=== PATIENT | male | born 1980 | race Caucasian/White ===

== ENCOUNTER 2020-01-14 11:46 | Outpatient (NON) | payer OTHER, SELFPAY ==
[2020-01-14 20:51] LABS: SARS-CoV-2 RNA PCR Negative
== END 2020-01-14 11:47 ==
PROVIDERS: Visit Provider Nurse Practitioner
DX: R09.89 Other specified symptoms and signs involving the circulatory and respiratory systems (principal); Z20.828 Contact with and (suspected) exposure to other viral communicable diseases
CPT/HCPCS: 87635; C9803; U0003

== ENCOUNTER 2020-02-07 06:53 | Outpatient (NON) | payer OTHER, SELFPAY ==
[2020-02-07 21:00] LABS: SARS-CoV-2 RNA PCR Negative
== END 2020-02-07 06:54 ==
PROVIDERS: Visit Provider Nurse Practitioner
DX: R05 Cough (principal); Z20.828 Contact with and (suspected) exposure to other viral communicable diseases
CPT/HCPCS: 87635; C9803; U0003

== ENCOUNTER 2020-08-10 08:08 | Emergency (ER) | payer OTHER, SELFPAY ==
[2020-08-10 08:14] VITALS: BP 117/72; PULSE 71; RESP 12; TEMP 37.4; O2SAT 98
--- NOTE | 2020-08-10 08:30 | ED.MALEGU ---
HPI - Male Genitourinary General Chief complaint: Urogenital-Male Stated complaint: FREQUENT URINATION/TINGLING Time Seen by Provider: 08/10/20 08:22 Source: patient and RN notes reviewed Mode of arrival: ambulatory Limitations: no limitations History of Present Illness HPI Narrative: 32-year-old male presents concern for 1 day history of dysuria, urine frequency, slow urine stream. He reports also feeling woozy for a few minutes this morning, he denies syncope. He denies fever, back pain, abdominal pain, nausea, vomiting, hematuria. He denies any testicular pain, swelling, abnormal penile discharge. He denies intervention. MD Complaint: dysuria Related Data Allergies Allergy/AdvReac Type Severity Reaction Status Date / Time No Known Allergies Allergy Verified 08/10/20 08:12 Review of Systems Review of Systems: Narrative: CONSTITUTIONAL: Denies malaise, chills, sweats, or fever. EYES: Denies visual changes CARDIOVASCULAR: Denies chest pain, palpitations, or edema. RESPIRATORY: Denies cough or dyspnea. GASTROINTESTINAL: Denies abdominal pain, nausea, vomiting, diarrhea GENITOURINARY: Reports frequency, dysuria, slow urine stream. Denies flank pain, penile discharge, testicular swelling, testicular redness or hematuria. SKIN: Denies rash or itching. MUSCULOSKELETAL: Denies back pain or myalgia. NEUROLOGIC: Denies numbness, weakness, or headache. Reports an episode of dizziness All systems reviewed & are unremarkable except as noted in HPI and below PMFSH Surgical History Surgical History [place] teeth removed Family History Family History Mother Pancreatic cancer Diverticulitis Father Hypertension Grandparent Parkinson disease Cerebrovascular accident Carcinoma of colon Social History Social History Smoking status: Never smoker Alcohol intake: current Comments At time of signature, agree with nursing past medical, surgical, social and family history. There is no relevant family history pertinent to the presenting complaint Exam Narrative: Exam Narrative: GENERAL: Well-appearing, well-nourished, and in no acute distress. HEAD: Normocephalic. EYES: PERRLA, conjunctivae clear. NECK: Supple. No lymphadenopathy CHEST: Clear to auscultation. No respiratory distress. HEART: Regular rate and rhythm. ABDOMEN: Soft, nontender upon palpation, nondistended, normal active bowel sounds, no palpable or pulsatile masses, no guarding. No CVA tenderness SKIN: Warm, dry, no rash. NEURO: Alert and oriented x3. No focal deficits. Gait normal. PSYCH: Normal mood and affect Course Course Emergency Course: Patient is aware of diagnosis, understands and agrees to treatment plan. Anticipatory guidance given. Patient agrees to follow-up as directed and is aware of reasons to seek care at the emergency department. Portions of this record may have been created with voice recognition software Vital Signs Vital signs: Vital Signs Temperature 99.4 F 08/10/20 08:14 Pulse Rate 71 08/10/20 08:14 Respiratory Rate 12 08/10/20 08:14 Blood Pressure 117/72 08/10/20 08:14 Pulse Oximetry 98 08/10/20 08:14 Temperature 99.4 F 08/10/20 08:14 Pulse Rate 71 08/10/20 08:14 Respiratory Rate 12 08/10/20 08:14 Blood Pressure 117/72 08/10/20 08:14 Pulse Oximetry 98 08/10/20 08:14 Reviewed. MDM - Male Genitourinary MDM Narrative Medical decision making narrative: Exam findings and UA show no acute concerns or changes; patient is non-toxic appearing and is in no distress. Patient is appropriate for outpatient treatment and follow-up. Differential Diagnosis Differential diagnosis: Likely urinary tract infection, urethritis, epididymitis, prostatitis and acute retention of urine Lab Data Labs: Urine Glucose Negative
== END 2020-08-10 08:36 | disposition home or self-care (01) ==
PROVIDERS: Emergency Provider Nurse Practitioner; PCP Internal Medicine
DX: N39.0 Urinary tract infection, site not specified (principal)
CPT/HCPCS: 81003; 87077; 87086; 87088; 87186; 99213; G0463

== ENCOUNTER 2020-08-11 14:02 | Emergency (ER) | payer OTHER, SELFPAY ==
--- NOTE | ~2020-08-11 | CT_ITS ---
EXAMINATION: CT abdomen pelvis w con DATE: 08/11/2020 16:42 INDICATION: Abdominal pain TECHNIQUE: Computed tomography (CT) of the abdomen and pelvis was performed with 100 mL Omnipaque-350 intravenous contrast. Automated exposure control and iterative reconstruction technique were employe d. The dose-length product was 550.61 mGy-cm. COMPARISON: None FINDINGS: Minimal dependent atelectasis in the bilateral lower lobes. Heart size is normal. No pericardial or p leural effusion. Liver, gallbladder, spleen, pancreas, bilateral adrenal glands and kidneys are teagan l. Bowels including the appendix are normal. Bladder is normal. Prostate appears enlarged for age barbara suring 5.7 x 3.9 cm with heterogeneous enhancement suggesting possible prostatitis. Bladder is normal . Small amount of ascites in the deep pelvis. No abscess or free intraperitoneal gas. No pathological ly enlarged abdominal or pelvic lymphadenopathy. Bones are unremarkable. IMPRESSION: 1. Enlarged and heterogeneously enhancing prostate. Correlate clinically for prostatitis.. Reviewed, dictated and finalized at location A. IMPRESSION: 1. Enlarged and heterogeneously enhancing prostate. Correlate clinically for pr ostatitis..
[2020-08-11 14:03] VITALS: BP 134/76; PULSE 79; RESP 16; TEMP 37.7; O2SAT 95
[2020-08-11 14:17] LABS: Basophils Percent Auto 0.1 % (0.2-1.2); Eosinophils Percent Auto 0.2 % (0-4.4); Hematocrit 43.6 % (42.0-52.0); Hemoglobin 14.7 g/dL (14.0-18.0); Immature Granulocyte Absolute 0.05 K/mm3 (0.00-0.031); Immature Granulocyte Percent A 0.4 % (0-0.5); Lymphocytes Absolute Auto 0.63 K/mm3 (0.9-3.2); Lymphocytes Percent Auto 4.9 % (18.3-44.2); Mean Corpuscular HGB Conc 33.7 g/dl (32-36); Mean Corpuscular Hemoglobin 30.8 pg (26-34); Mean Corpuscular Volume 91.4 fl (80-100); Mean Platelet Volume 9.8 fl (7.4-10.4); Monocytes Absolute Auto 0.9 K/mm3 (0.1-0.6); Neutrophils Absolute Auto 11.3 K/mm3 (1.3-6.7); Neutrophils Percent Auto 87.4 % (45.5-73.1); Platelet Count Result 256 k/mm3 (150-375); Red Blood Count 4.77 M/mm3 (4.6-6.20); Red Cell Distribution Width 13.2 % (11.5-14.5); White Blood Count 12.9 K/mm3 (4.5-10.0)
[2020-08-11 14:27] LABS: Anion Gap 7 mmol/L (8-16); Blood Urea Nitrogen 10 mg/dL (9-20); Carbon Dioxide 25 mmol/L (22-30); Chloride 106 mmol/L (98-107); Estimated Glomerular Filt Rate > 60; Glucose 136 mg/dL (75-110); Potassium 3.6 mmol/L (3.4-5.0); Sodium 138 mmol/L (137-145)
[2020-08-11 14:37] LABS: Add Urine Microscopic? YES; Appearance Urine Clear (Clear); Bilirubin Urine Negative (Negative); Blood Urine Negative (Negative); Color Urine Yellow (Yellow); Glucose Urine UA Negative (Negative); Ketones Urine Negative (Negative); Leukocyte Esterase Ur Trace LEU/UL (Negative); Mucus Urine Rare /lpf; Nitrate Urine Negative (Negative); Protein Urine Negative (Negative); RBC Urine 0-2 /hpf (0-2); Specific Grav Ur 1.011 (1.001-1.035); Urobilinogen Urine Negative mg/dL (<2.0)
[2020-08-11 15:20] VITALS: BP 123/77; PULSE 60; RESP 20; O2SAT 100
[2020-08-11 16:04] VITALS: BP 108/71; PULSE 56; RESP 20; O2SAT 100
[2020-08-11] MEDS: SODIUM CHLORIDE 0.9% IV 1,000 ML 999 ML IV CONT ×2 (16:04→17:20)
[2020-08-11 16:05] LABS: Lactic Acid Reflex 1.3 mmol/L (0.7-2.1)
--- NOTE | 2020-08-11 16:39 | ED.ABDPAIN ---
HPI - Abdominal Pain General Chief Complaint: Urogenital-Male Stated Complaint: UTI, fever Time Seen by Provider: 08/11/20 15:31 Source: RN notes reviewed History of Present Illness HPI narrative: Patient presents emergency department from home for dysuria. The patient states that starting yesterday he had painful urination described as a tingling and burning as well as low flow states at that time he also had fever and chills as well as a near syncopal episode. The patient went to urgent care yesterday and had a positive urine dip diagnosed with UTI started on Cipro which she has been taking. States he continues to not feel well today including low-grade temperatures which has been taking Tylenol and ibuprofen with last ibuprofen at 1230 he states he has been having associated lower back pain he denies any chest pain shortness of breath abdominal pain nausea vomiting or any other symptoms. The patient states he has had both of his Covid vaccines Related Data Allergies Allergy/AdvReac Type Severity Reaction Status Date / Time No Known Allergies Allergy Verified 08/11/20 16:37 Review of Systems Review of Systems: Narrative: Gen.: Reports fevers ENT: Denies congestion Respiratory: Denies shortness of breath or cough CV: Denies chest pain or palpitations GI: Denies abdominal pain nausea, emesis or diarrhea see HPI Musculoskeletal: Denies back pain or muscle pain Neuro: Denies numbness, tingling, weakness or focal weakness Skin: Denies rash Except as documented, all other systems reviewed and negative PMFSH Past Medical History Medical History (Updated 08/11/20 @ 17:14 by Kali Rebollar DO) Patient denies significant medical history Surgical History Surgical History [place] teeth removed Family History Family History Mother Pancreatic cancer Diverticulitis Father Hypertension Grandparent Parkinson disease Cerebrovascular accident Carcinoma of colon Social History Social History Smoking status: Never smoker Alcohol intake: current Gender identity (if verbalized by the patient): Male Exam Narrative: Exam Narrative: APPEARANCE: No acute distress, nontoxic, resting in bed EYES: EOMI HEENT: Normocephalic, atraumatic, OMM RESPIRATORY: No respiratory distress Clear to auscultation bilaterally with no rhonchi wheezing or rales. CARDIOVASCULAR: Regular rate and rhythm without murmurs rubs or gallops. ABDOMINAL: Soft, nontender, nondistended, no rebound or guarding MUSCULOSKELETAl: Moves all extremities. No clubbing, cyanosis or edema. NEURO: Awake and alert. Following commands, speech normal, no focal deficits SKIN:: Warm, dry. No rashes lesions or abrasions PSYCHIATRIC: Normal affect/mood, Course Course Emergency Course: Reviewed records from urgent care yesterday patient was placed on Cipro which she is taken [address] Anaya presentation work-up agrees with plan for discharge recommends patient be on Cipro for total of 2 weeks recommends patient start on Flomax Discussed with patient results of workup and diagnosis. Discussed need for follow-up with primary care, proper use of medication, and reasons to return to the emergency department. Patient understands and agrees to current treatment plan patient was given a week's worth of Cipro discharge yesterday at urgent care and will be written for another week of antibiotics Vital Signs Vital signs: Vital Signs Temperature 99.9 F H 08/11/20 14:03 Pulse Rate 79 08/11/20 14:03 Respiratory Rate 16 08/11/20 14:03 Blood Pressure 134/76 08/11/20 14:03 Pulse Oximetry 95 08/11/20 14:03 Temperature 99.9 F H 08/11/20 14:03 Pulse Rate 56 L 08/11/20 16:04 Respiratory Rate 20 08/11/20 16:04 Blood Pressure 108/71 08/11/20 16:04 Pulse Oximetry 100
[2020-08-11 17:20] VITALS: BP 126/81; PULSE 57; RESP 20; O2SAT 100
[2020-08-11] MEDS: TAMSULOSIN HCL 0.4 MG CAPSULE PO (17:20)
[2020-08-11 17:54] VITALS: BP 126/81; PULSE 57; RESP 20; O2SAT 100
== END 2020-08-11 17:55 | disposition home or self-care (01) ==
PROVIDERS: Emergency Provider Emergency Medicine; PCP Internal Medicine
DX: N41.0 Acute prostatitis (principal)
CPT/HCPCS: 36415; 74177; 80048; 81001; 83605; 85025; 87040; 87086; 96360; 96361; 99284; A9270; J7030; Q9967

== ENCOUNTER 2020-11-08 11:19 | Emergency (ER) | payer OTHER, SELFPAY ==
--- NOTE | 2020-11-08 11:25 | ED.URI ---
HPI - URI/Sore Throat General Chief Complaint: Upper Respiratory Infection Stated Complaint: sore throat Time Seen by Provider: 11/08/20 11:25 Source: patient and RN notes reviewed History of Present Illness HPI Narrative: Patient is a 40-year-old male who presents the urgent care with complaints of a sore throat and blisters in the mouth. Patient states his daughter was diagnosed the beginning of this week with [id number]-mouth and he believes he now has it as well. Patient states he noticed the blisters a few days after his daughter was diagnosed. States that the areas on his hands are improving but he is having a difficult time swallowing due to the pain from the blistering. Patient denies of any fevers. States that he has been using at home remedies to soothe the throat as well as taking TheraFlu and DayQuil. No other acute complaints. No acute distress noted. Patient aware of the plan of care. Some parts of this dictation were generated by voice recognition software and may contain typographical and/or grammatical inaccuracies. Related Data Allergies Allergy/AdvReac Type Severity Reaction Status Date / Time No Known Allergies Allergy Verified 08/11/20 16:37 Review of Systems Review of Systems: CONSTITUTIONAL: Denies fever, chills, or sweats. EYES: Denies visual changes, redness, or discharge. ENT: Denies rhinorrhea, congestion, or otalgia. Reports of blistering in the throat/sore throat CARDIOVASCULAR: Denies chest pain, palpitations, or edema. RESPIRATORY: Denies cough or dyspnea. GASTROINTESTINAL: Denies abdominal pain, nausea, vomiting, or diarrhea. GENITOURINARY: Denies dysuria or hematuria. SKIN: Denies rash or itching. MUSCULOSKELETAL: Denies back pain, joint pain, or myalgia. NEUROLOGIC: Denies headache, numbness, or weakness. All other systems reviewed are negative, except as documented in HPI. [facility] Past Medical History Medical History (Updated 11/08/20 @ 11:45 by VERONIKA Jones) Patient denies significant medical history Surgical History Surgical History [place] teeth removed Family History Family History Mother Pancreatic cancer Diverticulitis Father Hypertension Grandparent Parkinson disease Cerebrovascular accident Carcinoma of colon Social History Social History Smoking status: Never smoker Alcohol intake: current Gender identity (if verbalized by the patient): Male Comments At the time of my signature, I reviewed and agree with the nursing past medical, surgical, social, and family history. There is no relevant family history pertinent to the patient complaint. Exam Narrative: GENERAL: This is a well-nourished, well-developed patient, in no apparent distress. HEAD: normocephalic, atraumatic. EYES: PERRL. Sclera clear/white. Vision is grossly intact. EARS: External ears normal NOSE: External nose normal with no obvious nasal discharge, nares without redness, no rhinorrhea. THROAT: Mucous membranes moist, moderate erythema noted to posterior oropharynx with scattered blistered lesions, moderate postnasal drainage NECK: Neck supple, mild bilateral submandibular lymphadenopathy CARDIOVASCULAR: Regular rate and rhythm without murmurs, gallops, or rubs. RESPIRATORY: Clear to auscultation. Breath sounds equal bilaterally. No wheezes, rales, or rhonchi. SKIN: Scattered healing blistered lesions throughout the bilateral webs of the hands and dorsal hand NEURO: awake, alert, and oriented to person, place and time. There were no obvious focal neurologic abnormalities. EXTREMITIES: No clubbing, cyanosis, or edema. Course Vital Signs Vital signs: Vital Signs Temperature 98 F 11/08/20 11:27 Pulse Rate 54 L 11/08/20 11:27 Respiratory Rate 16 11/08/20 11:27 Blood Pressure 133/89 11/08/20 11:27 Pulse Oximetry
[2020-11-08 11:27] VITALS: BP 133/89; PULSE 54; RESP 16; TEMP 36.6; O2SAT 100
== END 2020-11-08 11:49 | disposition home or self-care (01) ==
PROVIDERS: Emergency Provider Nurse Practitioner Family; PCP Internal Medicine
DX: B08.4 Enteroviral vesicular stomatitis with exanthem (principal)
CPT/HCPCS: 99213; G0463

== ENCOUNTER 2021-05-05 16:44 | Observation (INO) | payer OTHER, SELFPAY ==
[2021-05-05] VITALS (21 sets, daily range): BP systolic 114–127; BP diastolic 65–81; PULSE 56–74; RESP 11–19; TEMP 36.4–36.5; O2SAT 95–100; BMI 26.2
--- NOTE | ~2021-05-05 | XR_ITS ---
XR chest 2V DATE: 05/05/2021 17:32 INDICATION: Syncopal episode TECHNIQUE: AP and lateral views COMPARISON: None FINDINGS: Heart size is not optimally evaluated on AP projection because of magnification. No hilar o r mediastinal enlargement. No pulmonary vascular congestion or pleural effusion. No pulmonary infiltr ate or consolidation. IMPRESSION: No active pulmonary disease Reviewed, dictated and finalized at location B. ON [employer]JUSTER IMPRESSION: No active pulmonary disease
--- NOTE | ~2021-05-05 | CT_ITS ---
EXAMINATION: CT brain wo con DATE: 05/05/2021 17:54 INDICATION: Syncopal episode. Hypotension and lightheadedness. TECHNIQUE: Computed tomography (CT) of the head was performed without intravenous contrast. Sagittal and coronal reconstructions were performed. The mA was adjusted according to patient size. Iterative reconstruction technique was employed. The dose-length product was 605.33 mGy-cm. COMPARISON: None FINDINGS: No acute intracranial hemorrhage, acute infarction or abnormal extra axial fluid collection. Ventricl es are normal and symmetric. No mass/mass effect. The orbits, paranasal sinuses and mastoid air cells are normal. IMPRESSION: 1. Normal head CT. Reviewed, dictated and finalized at location A. DDER PICKER IMPRESSION: 1. Normal head CT.
--- NOTE | ~2021-05-05 | CT_ITS ---
EXAMINATION: CT soft tissue neck w con DATE: 05/05/2021 17:54 INDICATION: Syncopal episode and injury post fall. TECHNIQUE: Computed tomography (CT) of the neck was performed with 75 mL Omnipaque-350 intravenous co ntrast. Automated exposure control and iterative reconstruction technique were employed. The dose-marianela gth product was 586.75 mGy-cm. COMPARISON: None FINDINGS: Thyroid gland is unremarkable. Submandibular and parotid glands are symmetric. There are scattered normal-sized lymph nodes in the neck, no lymphadenopathy. No masses identified. The vasculature is patentand normal in caliber. Airway is unremarkable. Orbits are unremarkable. Visualized sinuses and mastoid aircells are well aerated. Lung apices are normal. Superior mediastinum is unremarkable. Mi ld cervical thoracic levocurvature. No acute osseous abnormality. IMPRESSION: 1. No acute abnormality at the neck, visualized head and upper chest. Reviewed, dictated and finalized at location A. [employer]
--- NOTE | 2021-05-05 17:12 | ECG_ITS ---
Measurements Intervals [place] Rate: 55 P: -7 MD: 191 QRS: -10 QRSD: 121 T: 7 QT: 444 QTc: 427 Interpretive Statements SINUS BRADYCARDIA RIGHT BUNDLE BRANCH BLOCK POSSIBLE LEFT VENTRICULAR HYPERTROPHY ABNORMAL ECG Electronically Signed On 05-05-2021 20:17:10 [employer] by Junior Corrigan D.O.
--- NOTE | 2021-05-05 17:15 | ED.SYNCOPE ---
HPI - Syncope General Chief Complaint: Syncope <Go Bhatt APRN - Last Filed: 05/05/21 20:17> Stated Complaint: syncope <Go Bhatt APRN - Last Filed: 05/05/21 20:17> Time Seen by Provider: 05/05/21 16:57 <Go Bhatt APRN - Last Filed: 05/05/21 20:17> Source: patient, family, EMS and RN notes reviewed <Go Bhatt APRN - Last Filed: 05/05/21 20:17> Mode of arrival: EMS <Go Bhatt APRN - Last Filed: 05/05/21 20:17> Limitations: no limitations <Go Bhatt APRN - Last Filed: 05/05/21 20:17> History of Present Illness HPI narrative: Patient presents to ER via EMS with c/o syncopal episode sustained while running. Patient has no known cardiac history. No history of syncopal episodes. Avila states he had already run 2-2.5 miles prior to the episode. States he was initially feeling lightheaded and then woke up lying on the ground. Patient admits to hitting his head on the ground following the syncopal incident. Patient admits to being poorly hydrated prior to exercising today. <Go Bhatt APRN - Last Filed: 05/05/21 20:17> Prodromal symptoms: lightheaded <Go Bhatt APRN - Last Filed: 05/05/21 20:17> Witnessed: Yes - by Bystander <Go Bhatt APRN - Last Filed: 05/05/21 20:17> Treatments prior to arrival: IV fluids <Go Bhatt APRN - Last Filed: 05/05/21 20:17> Related Data Home Medications: Home Medications Medication Instructions Recorded Confirmed No Home Medications 05/05/21 05/05/21 <Go Bhatt APRN - Last Filed: 05/05/21 20:17> Allergies/Adverse Reactions: Allergies Allergy/AdvReac Type Severity Reaction Status Date / Time No Known Allergies Allergy Verified 08/11/20 16:37 <Go Bhatt APRN - Last Filed: 05/05/21 20:17> Review of Systems Review of Systems: CONSTITUTIONAL: Denies fever, chills, or sweats. EYES: Denies visual changes, redness, or discharge. ENT: Denies rhinorrhea, congestion, sore throat, or otalgia. CARDIOVASCULAR: Denies chest pain, palpitations, or edema. RESPIRATORY: Denies cough or dyspnea. GASTROINTESTINAL: Denies abdominal pain, nausea, vomiting, or diarrhea. GENITOURINARY: Denies dysuria or hematuria. SKIN: Denies rash or itching. MUSCULOSKELETAL: Denies back pain, joint pain, or myalgia. NEUROLOGIC: Denies headache, numbness, dizziness, or weakness. PSYCHIATRIC: Denies anxiety or depression. <Go Bhatt APRN - Last Filed: 05/05/21 20:17> All systems reviewed & are unremarkable except as noted in HPI and below <Go Bhatt APRN - Last Filed: 05/05/21 20:17> PMFSH Past Medical History Medical History: Medical History Patient denies significant medical history <Go Bhatt APRN - Last Filed: 05/05/21 20:17> Surgical History Surgical History: Surgical History [place] teeth removed <Go Bhatt APRN - Last Filed: 05/05/21 20:17> Family History Family History: Family History Mother Pancreatic cancer Diverticulitis Father Hypertension Grandparent Parkinson disease Cerebrovascular accident Carcinoma of colon <Go Bhatt APRN - Last Filed: 05/05/21 20:17> Social History Social History: Social History Smoking status: Never smoker Alcohol intake: current Gender identity (if verbalized by the patient): Male <Go Bhatt APRN - Last Filed: 05/05/21 20:17> Exam Narrative: GENERAL: Well-appearing, well-nourished, and in no acute distress. HEAD: Normocephalic, atraumatic. EYES: PERRLA and EOMI. ENT: Nares clear, no rhinorrhea or epistaxis. Mucous membranes dry.. Oropharynx without tonsillar hypertrophy exudate or other lesions. Bilateral TMs pearly
[2021-05-05] MEDS: SODIUM CHLORIDE 0.9% IV 1,000 ML 150 ML IV CONT (17:29)
[2021-05-05 17:50] LABS: Estimated CRCL calculation 120 ml/min; Estimated Glomerular Filt Rate > 60
[2021-05-05 18:41] LABS: Basophils Percent Auto 0.1 % (0.2-1.2); Eosinophils Percent Auto 0.2 % (0-4.4); Hematocrit 45.8 % (42.0-52.0); Hemoglobin 15.5 g/dL (14.0-18.0); Immature Granulocyte Absolute 0.07 K/mm3 (0.00-0.031); Immature Granulocyte Percent A 0.5 % (0-0.5); Lymphocytes Percent Auto 6.5 % (18.3-44.2); Mean Corpuscular HGB Conc 33.8 g/dl (32-36); Mean Corpuscular Hemoglobin 31.8 pg (26-34); Neutrophils Absolute Auto 11.9 K/mm3 (1.3-6.7); Neutrophils Percent Auto 85.7 % (45.5-73.1); Platelet Count Result 249 k/mm3 (150-375); Red Blood Count 4.87 M/mm3 (4.6-6.20); Red Cell Distribution Width 12.9 % (11.5-14.5); White Blood Count 13.9 K/mm3 (4.5-10.0)
[2021-05-05 19:07] LABS: D Dimer 0.27 ug/mL (<0.48)
[2021-05-05 19:08] LABS: Alanine Aminotransferase 67 U/L (4-50); Albumin Level 3.9 g/dL (3.5-5.1); Alkaline Phosphatase 62 U/L (38-126); Anion Gap 6 mmol/L (8-16); Aspartate Amino Transferase 40 U/L (17-59); Bilirubin,Total 0.6 mg/dL (0.2-1.3); Blood Urea Nitrogen 21 mg/dL (9-20); Carbon Dioxide 27 mmol/L (22-30); Chloride 103 mmol/L (98-107); Creatine Kinase 137 U/L (55-170); Estimated CRCL calculation 89 ml/min; Estimated Glomerular Filt Rate > 60; Glucose 123 mg/dL (65-110); Potassium 4.2 mmol/L (3.4-5.0); Sodium 136 mmol/L (137-145); Troponin I < 0.012 ng/mL (0.000-0.034)
--- NOTE | 2021-05-05 19:51 | PM.IMHP ---
H&P: HPI History of Present Illness Date/Time: 05/05/21 19:51 Chief Complaint: Syncope Narrative: This is a 40-year-old male with no significant past medical history patient presents to the emergency room after he had a syncopal episode today patient went of joking and had done to to 2-1/2 miles when he started feeling lightheaded and decided to stop while he was standing he passed out a bystander helped him and called 911 upon arrival patient was found to have a blood pressure of 90/60 patient was brought to the emergency room for further evaluation. In emergency room patient was found to be orthostatic. Workup was essentially nonrevealing. An EKG showed a right bundle branch block. Patient was recently diagnosed with COVID at the beginning of March. Patient denies any fevers, rigors, chills, cough, sputum production , no palpitations, no chest pain, no PND, no orthopnea, no dizziness, no lightheadedness, no near syncope or syncope prior to today's event, no leg swelling, no calves pain, patient states that he does not drink in no of water and he instead drinks a lot of coffee during the day, denies any nausea vomiting abdominal pain or diarrhea. Patient jaw ox 3-4 miles 4 days a week. Patient is been admitted for further evaluation, management and treatment. Review of Systems Review of Systems: Syncope, lightheadedness. Constitutional: Constitutional: Denies chills, Denies fatigue, Denies fever(s), Denies frequent falls, Denies lethargy, Denies malaise, Denies night sweats, Denies poor appetite and Denies weakness Eyes: Eyes: Denies change in vision ENT: Denies dysphagia, Denies vertigo, Denies dizziness, Denies nasal congestion, Denies nasal discharge, Denies nasal obstruction, Denies odynophagia and Denies disequilibrium Cardiovascular: Cardiovascular: Denies chest pain, Denies pedal edema, Denies irregular heart rhythm, Denies claudication, Denies leg edema, Denies radiating jaw, neck or arm pain, Denies palpitations, Denies dyspnea on exertion, Denies orthopnea, Denies paroxysmal nocturnal dyspnea and Denies slow heart rate Respiratory: Respiratory: Denies chest congestion, Denies cough, Denies dyspnea, Denies dyspnea on exertion and Denies wheezing Gastrointestinal: Gastrointestinal: Denies abdominal pain, Denies dyspepsia, Denies heartburn, Denies diarrhea, Denies nausea and Denies vomiting Genitourinary: Genitourinary: Denies dysuria and Denies flank pain Musculoskeletal: Musculoskeletal: Denies back pain, Denies arthralgias, Denies joint swelling and Denies muscle weakness Integumentary/Breasts: Skin/Breast: Denies rash and Denies wounds Neurologic: Denies vertigo, Denies dizziness, Denies focal weakness and Denies Sensory deficit (Neuro) Psychiatric: Psychiatric: Denies confusion, Denies depression and Denies irritability Endocrine: Endocrine: Denies cold intolerance, Denies heat intolerance, Denies polyphagia, Denies polydipsia and Denies palpitations Hematologic/Lymphatic: Hematologic/Lymphatic: Reports no additional hematologic/lymphatic complaints and Reports as per HPI Allergic/Immunologic: Allergic/Immunologic: Reports no additional allergic/immunologic complaints and Reports as per HPI [facility] Past Medical History Medical History Patient denies significant medical history Surgical History Surgical History [place] teeth removed Family History Family History Mother Pancreatic cancer Diverticulitis Father Hypertension Grandparent Parkinson disease Cerebrovascular accident Carcinoma of colon Social History Social History Smoking status: Never smoker Second hand tobacco smoke exposure: No Alcohol intake: never Substance use: never Gender identity (if verbalized by the patient):
[2021-05-05 21:15] LABS: SARS-CoV-2 RNA PCR Negative
[2021-05-06] VITALS (9 sets, daily range): BP systolic 111–125; BP diastolic 63–70; PULSE 52–70; RESP 16–20; TEMP 36.3–36.9; O2SAT 96–100
--- NOTE | 2021-05-06 00:25 | ADMGEN ---
This patient, Stephan Andre, arrived to unit @ 9050 05/05/2021. Pt. was admitted to IMU Room 206-02. Patient/family oriented to hospital policies and general routines including ID bracelet, bed and alarms, visiting hours, pain management, procedures, bathroom and other care routines, personal items, smoking policy, room service/diet, and visiting hours. Information on how to activate the Rapid Response Team has been discussed. Patient/Family are encouraged to report perceived risks to care and to ask questions if they do not understand what they are told or what they should do.
[2021-05-06 00:57] LABS: Troponin I < 0.012 ng/mL (0.000-0.034)
--- NOTE | 2021-05-06 06:00 | ECHO_ITS ---
Patient Info Name: Stephan Andre Age: 40 years : 1980 Gender: Male Ht: 72 in Wt: 193 lbs BSA: 2.12 m2 HR: 54 bpm BP: 121 / 69 mmHg Heart Rhythm: Sinus Rhythm Technical Quality: Fair Exam Date: 05/06/2021 8:06 AM Exam Location: [facility] Patient Status: Outpatient Admit Date: 05/05/2021 Staff Ordering Physician: Go Bhatt APRN Ice Seller: Rabia Barakat RDCS Attending Provider: Ne Bowers MD Referring Physician: Miller MORGAN; Exam Type: CA echo doppler color flow Study Info Indications - Lv function Complete two-dimensional, color flow and Doppler transthoracic echocardiogram is performed. Summary 1. Complete two-dimensional, color flow and Doppler transthoracic echocardiogram is performed. 2. Left ventricular chamber dimension is normal. 3. Left ventricular systolic function is normal, estimated at 65-70%. 4. Right ventricular chamber dimension is normal. 5. Barely detectable amounts of mitral and tricuspid regurgitation within physiologic normal limits. Left Ventricle Left ventricular chamber dimension is normal. Left ventricular systolic function is normal, estimated at 65-70%. The left ventricular diastolic function is normal. Right Ventricle Right ventricular chamber dimension is normal. Left Atria Left atrial chamber dimension is normal. Right Atria Right atrial chamber dimension is normal. Aortic Valve The aortic valve is normal. Pulmonic Valve The pulmonic valve is normal. Mitral Valve The mitral valve has normal leaflets. There is trace mitral valve regurgitation. Tricuspid Valve The tricuspid valve leaflets are normal. There is trace tricuspid valve regurgitation. Pericardium/Pleural The pericardium appears normal. Aorta The aortic root size at the sinus of Valsalva is normal. Left Ventricular Outflow Tract Name Value Normal LVOT 2D LVOT Diameter 2.1 cm LVOT Doppler LVOT Peak Gradient 10 mmHg LVOT Mean Gradient 5 mmHg LVOT VTI 32 cm LVOT VTI/AV VTI Ratio 0.9 LVOT Stroke Volume 115 ml LVOT CO 6.4 l/min LVOT CI 3.0 l/min/m2 Pulmonic Valve Name Value Normal RVOT Doppler RVOT Peak Gradient 3 mmHg PV Doppler PV Peak Gradient 6 mmHg Mitral Valve Name Value Normal MV Doppler MV [place]
--- NOTE | 2021-05-06 12:14 | PM.CNCAR ---
Assessment and Plan Additional Plan This is a 40-year-old man who had a syncopal episode after running a long distance yesterday. Upon arrival EMS found to be hypotensive. There was comment in the chart that he may not have hydrated properly prior to exercising. After he was given some fluid he felt better. Upon admission overnight he has not had any arrhythmias. No prior cardiac history. He does have an incidentally noted right bundle branch block on his ECG. Echocardiogram was otherwise essentially unremarkable. At this point there is no cardiac reason he needs to stay in the hospital any longer. I told the patient that if he has subsequent episodes like this he should lie down quickly so that he does not fall down. Because he did have some warning symptoms for a short period of time I doubt that he pause because of an abrupt asystolic pause. These type of syncopal events generally are associated with no warning symptoms of any kind. On the other hand if he does have recurrent episodes he may benefit from more evaluation of his rhythm or possibly electrophysiology consultation. At this point he could be safe to be discharged from my opinion Aries Smiley MD [facility] History of Present Illness History of Present Illness Consult date/time: 05/06/21 12:14 Reason For Visit: syncope Narrative: This is a pleasant 40-year-old man I am seeing at the request of the hospitalist because he experienced a syncopal episode yesterday after which he was admitted to the hospital for observation and evaluation. The patient denies any prior history of cardiac problems that have been documented. He is an active gentleman who exercises regularly. He runs several days per week about for 5 miles. He yesterday he was finishing 1 of these runs and he was getting close to home and he started to feel unwell with sensation of some lightheadedness and possibly some mild diaphoresis. He decided to stop running and walking the rest of the weight home because of the symptoms. He then felt very poorly was lightheaded and the next thing he remembers he apparently lost consciousness could he was waking up on the ground. He states he tried to get up and stand but it 0 was unsteady and took another fall. A bystander had him lay back down and called 911. Apparently when EMS arrived they found to be hypotensive with systolic blood pressures that were low he was given some IV fluid and transported to the emergency room for further evaluation. He says by the time he got here he was feeling fairly well and did not have any other complaints. He was admitted to the hospital for further evaluation and management. In the emergency room and on telemetry since admission he is in sinus rhythm with no arrhythmias identified. His electrocardiogram shows sinus rhythm with a right bundle branch block. There are no prior EKGs in the chart here for comparison. He had an echocardiogram done this morning which is a normal exam other than a trivial amount of mitral and tricuspid valve regurgitation neither which are audible on physical exam. The patient feels well this morning is hopeful to be discharged. He does not have any prior history of medical problems such as hypertension or diabetes. He has never had a syncopal episode before. He did have an episode of presyncope in the past when he had a high fever with a prostate infection. 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 Is a lifelong nonsmoker. Review of Systems Constitutional: Constitutional: Reports no additional constitutional complaints Eyes: Eyes: Reports no additional eye complaints ENT: Reports system reviewed and no additional complaints, except as documented Cardiovascular: Cardiovascular: Reports as per HPI Respiratory: Respiratory: Reports no additional respiratory complaints Gastrointestinal: Gastrointestinal: Reports no additional gastrointestinal complaints Musculoskeletal: Musculoskeletal: Reports no addit
--- NOTE | 2021-05-06 16:17 | WPDNEURCNPN ---
Assessment and Plan Additional Plan vasovagal syncope rule out the possibility of seizure though extremely unlikely Consult date: 05/06/21 HPI: Stephan Andre is a 40 year old male admitted to the hospital through the emergency room for a syncopal episode and with the information that he went for jaw [place] and had done about 2-1/2 miles many started feeling lightheaded decided to stop and while he was standing he passed out bystander help him and call 911 upon arrival patient was found to have a blood pressure of 90/60 II to the emergency room for further evaluation in the emergency room was found to be orthostatic initial workup was negative EKG reveals right bundle branch block patient had been recently diagnosed to have COVID at the beginning of March he gave no history of associated generalized symptomatology neuro consultation has been obtained to rule out the possibility of the seizure patient is a never smoker or drinker does not take any home medication initial CPK was 137 hepatic enzymes were normal except ALT of 67 and alkaline phos of 62 Review of Systems Review of Systems: All systems reviewed & are unremarkable except as noted in HPI and below PMFSH Past Medical History Medical History Patient denies significant medical history Surgical History Surgical History [place] teeth removed Family History Family History Mother Pancreatic cancer Diverticulitis Father Hypertension Grandparent Parkinson disease Cerebrovascular accident Carcinoma of colon Social History Social History Smoking status: Never smoker Second hand tobacco smoke exposure: No Alcohol intake: never Substance use: never Gender identity (if verbalized by the patient): Male Spiritual care concerns: No Meds Home Medications and Allergies Home Medications Medication Instructions Recorded Confirmed Type No Home Medications 05/05/21 05/05/21 History Allergies Allergy/AdvReac Type Severity Reaction Status Date / Time No Known Allergies Allergy Verified 08/11/20 16:37 Vital Signs Vital Signs - 24 hr 05/05/21 16:45 05/05/21 17:08 05/05/21 17:20 Temperature 36.4 C L Pulse Rate 61 60 58 L Respiratory Rate 16 16 12 Blood Pressure 118/80 Pulse Oximetry 98 99 98 05/05/21 17:32 05/05/21 17:53 05/05/21 17:54 Temperature Pulse Rate 56 L 67 62 Respiratory Rate 17 11 L Blood Pressure 114/79 Pulse Oximetry 98 98 05/05/21 18:00 05/05/21 18:32 05/05/21 18:45 Temperature Pulse Rate 65 69 63 Respiratory Rate 11 L 12 15 Blood Pressure Pulse Oximetry 100 96 99 05/05/21 18:46 05/05/21 19:00 05/05/21 19:01 Temperature Pulse Rate 74 63 61 Respiratory Rate 19 14 16 Blood Pressure 127/79 115/65 Pulse Oximetry 99 99 98 05/05/21 19:15 05/05/21 19:16 05/05/21 19:31 Temperature Pulse Rate 66 63 66 Respiratory Rate 19 11 L 18 Blood Pressure 115/76 117/75 Pulse Oximetry 97 97 96 05/05/21 19:32 05/05/21 19:45 05/05/21 19:46 Temperature Pulse Rate 63 69 70 Respiratory Rate 16 19 12 Blood Pressure 119/65 Pulse Oximetry 95 98 97 05/05/21 20:03 05/05/21 23:19 05/05/21 23:30 Temperature 36.4 C L 36.5 C Pulse Rate 61 60 56 L Respiratory Rate 13 12 14 Blood Pressure 124/81 125/74 Pulse Oximetry 97 98 99 05/06/21 00:00 05/06/21 02:00 05/06/21 04:00 Temperature 36.3 C L Pulse Rate 60 57 L 54 L Respiratory Rate 18 20 Blood Pressure 111/63 Pulse Oximetry 100 96 05/06/21 06:00 05/06/21 08:00 05/06/21 10:00 Temperature 36.6 C Pulse Rate 67 56 L 61 Respiratory Rate 16 Blood Pressure 121/69 Pulse Oximetry 98 05/06/21 12:00 05/06/21 14:00 05/06/21 16:00 Temperature 36.9 C 36.7 C Pulse Rate 52 L 60 53 L Respiratory Rate 16 16 Blood Pr
--- NOTE | 2021-05-06 16:53 | PM.DS ---
DS: Admitting Diagnosis Discharge Date 05/06/2021 Admitting Diagnosis Syncope DS: Discharge Diagnosis Discharge Diagnosis (1) Syncope and collapse: Code(s): R55 - Syncope and collapse Status: Acute Assessment and Plan: Place in observation in IMU Likely secondary to orthostatic hypotension during strenuous exercise. EKG reviewed Will obtain echocardiogram in the morning Cardiology consult (2) Orthostatic hypotension: Code(s): I95.1 - Orthostatic hypotension Status: Acute Assessment and Plan: Receiving IV fluids. Push oral intake Continue to monitor DS: Summary Hospital Course Reason for hospitalization: Chief Complaint: Syncope Narrative: This is a 40-year-old male with no significant past medical history patient presents to the emergency room after he had a syncopal episode today patient went of joking and had done to to 2-1/2 miles when he started feeling lightheaded and decided to stop while he was standing he passed out a bystander helped him and called 911 upon arrival patient was found to have a blood pressure of 90/60 patient was brought to the emergency room for further evaluation. In emergency room patient was found to be orthostatic. Workup was essentially nonrevealing. An EKG showed a right bundle branch block. Patient was recently diagnosed with COVID at the beginning of March. Patient denies any fevers, rigors, chills, cough, sputum production , no palpitations, no chest pain, no PND, no orthopnea, no dizziness, no lightheadedness, no near syncope or syncope prior to today's event, no leg swelling, no calves pain, patient states that he does not drink in no of water and he instead drinks a lot of coffee during the day, denies any nausea vomiting abdominal pain or diarrhea. Patient jaw ox 3-4 miles 4 days a week. Patient is been admitted for further evaluation, management and treatment. Hospital Course: patient with syncopal episode patient had a cardiac echo essentially normal seen by cardiology no further workup is recommended, patient had EEG essentially normal and no further, patient is clinically stable will discharge the patient today. Status at Discharge Functional status at discharge: independent ambulation Overall status at discharge: patient is back to baseline Time Spent with Patient Time attestation: Total time spent providing and/or coordinating discharge services: Patient was seen and examined at the time of the discharge Condition at discharge is stable Code status: Full code. Time spent preparing discharge summary, discharge medications, discussing discharge planning with case briefer and patient is 35 minutes. Time spent: Greater than 30 minutes Exam Narrative: Patient is comfortable, NAD HEENT: eyes are clear and none icteric LUNGS:CTA HEART: RR S1S2 ABD: BS+, Soft and nontender Lower extremities: no edema SKIN: nonjaundiced Neuro: grossly intact. DS: Data Data Completed and Pending Labs on day of discharge: Labs from last 24 hours 05/06/21 05/05/21 05/05/21 00:05 20:28 18:20 WBC RBC Hgb Hct MCV MCH MCHC RDW Plt Count MPV Immature Gran % (Auto) Neut % (Auto) Lymph % (Auto) [place] % (Auto) Eos % (Auto) Baso % (Auto) Lymph # (Auto) [place] # (Auto) Eos # (Auto) Baso # (Auto) Abs Immat Gran (auto) Absolute Neuts (auto) Absolute Nucleated RBC Nucleated RBC % D-Dimer Sodium Potassium Chloride Carbon Dioxide Anion Gap BUN Creatinine Estim Creat Clear Calc Estimated GFR Glucose Calcium Total Bilirubin AST ALT Alkaline Phosphatase Total Creatine Kinase Cancelled Troponin I < 0.012 Total Protein Albumin SARS-CoV-2 RNA (RT-PCR) Negative 05/05/21 05/05/21 05/05/21 18:20 18:20 18:20 WBC RBC Hgb Hct MCV MCH MCHC RDW Plt Count MPV Immature Gran %
--- NOTE | 2021-05-07 09:44 | P.NEURO_ITS ---
Neurology EEG Report General Information Date of Study: 05/06/21 TEST eeg DIAGNOSIS Possible seizures CONDITION OF RECORDING drowsy and sleep EEG NUMBER [id number] CLINICAL HISTORY patient reported he was out running yesterday when he started to feel sick, started walking and lost consciousness. EEG DESCRIPTION Basic resting occipital frequency consists of small amount of low to medium voltage 8 to 9 hertz per 2nd alpha during brief years of wakefulness. Low- voltage beta activity seen diffusely during drowsiness. Bilateral symmetrical sleep activity seen throughout the tracing with symmetrical sleep spindles. Hyperventilation not done. Photic stimulation not done. Non paroxysmal. Nonfocal. Nonlateralizing. IMPRESSION Normal EEG
== END 2021-05-06 17:50 | disposition home or self-care (01) ==
LOC: ANHED 20:16 → ANHIMU 05-06 16:53
PROVIDERS: Emergency Medicine; Admitting Provider Internal Medicine; Emergency Provider Nurse Practitioner Family; PCP Internal Medicine; Visit Provider Family Medicine
DX: I95.1 Orthostatic hypotension (principal); Z86.16 Personal history of COVID-19; Z20.822 Contact with and (suspected) exposure to COVID-19
CPT/HCPCS: 36415; 70450; 70491; 71046; 80053; 82550; 84484; 85025; 85380; 93005; 93306; 95816; 96360; 96361; 99285; C9803; G0378; J7030; Q9967; U0003; U0005

== ENCOUNTER → 2022-04-20 11:25 | Outpatient (CLI) | payer OTHER, SELFPAY ==
--- NOTE | ~2022-04-20 | XR_ITS ---
EXAMINATION: XR lumbar spine 2-3V DATE: 04/20/2022 11:36 INDICATION: Low back pain TECHNIQUE: Anteroposterior and lateral views of the lumbar spine, and cone-down lateral view of the l umbosacral junction were obtained. COMPARISON: 08/11/2020 FINDINGS: Vertebral body alignment is normal. There is no fracture. The vertebral body heights are ma intained. There is mild loss of intervertebral disc space height at L5-S1. The bowel gas pattern is n ormal. Phleboliths are noted in the pelvis. IMPRESSION: 1. Mild lumbar spondylosis at L5-S1. Reviewed, dictated and finalized at location L. OGY PROFESSOR
== END ==
PROVIDERS: PCP Internal Medicine; Visit Provider Nurse Practitioner
DX: M54.50 Low back pain, unspecified (principal); M43.06 Spondylolysis, lumbar region
CPT/HCPCS: 72100

== ENCOUNTER 2022-05-12 08:26 | Outpatient (CLI) | payer OTHER, SELFPAY ==
--- NOTE | 2022-05-23 15:39 | WPDHOMESLEEP ---
Sleep Study - Home Unattended Date of Study: 05/12/22 Ordering Provider: Crystal Lugo DO Interpreting Provider: Crystal Lugo DO Home Sleep Study Type: Watch PAT Height: 1.83 m Weight: 88.451 kg Body Mass Index: 26.4 Neck Circumference (inches): 15.5 [place]: 5 Reason for Sleep Study Loud snoring Sleep History The patient is a 41-year-old male that had a sleep study ordered for evaluation of sleep apnea. The patient denies awakening from sleep short of breath. He denies awakening at night with heartburn, belching or cough. He occasionally snores and is occasionally loudly enough that others complain. He occasionally has trouble sleeping when he has a cold. He denies waking up gasping for air through the night. He denies having breathing problems at night observed by himself or others. He rarely sweats excessively at night. He rarely has heart palpitations or irregular heartbeats during the night. He rarely falls asleep during the day and never while driving. He denies sleep paralysis, cataplexy and hypnagogic / hypnopompic hallucinations. He rarely has trouble at school or work due to sleepiness. He denies feeling afraid of falling to sleep. He rarely has nightmares and rarely remembers his dreams. He occasionally has thoughts racing through his mind. He denies feeling sad or depressed. He rarely has anxiety. He denies having muscular tension. He denies noticing parts of his body jerk. He denies kicking during the night. He denies having crawling and aching feelings in his legs and denies having leg pain during the night. He rarely grinds his teeth during sleep but never awakens with morning jaw pain. He denies being bothered by pain during the day but is rarely awakened by pain during the night. He occasionally wakes up feeling stiff in the morning. He denies waking up with sore or achy muscles. He denies waking up with pain in the neck, spine or other joints. He goes to bed at 10:00 p.m. on both weekdays and weekends. It takes him 20 minutes to fall asleep. He wakes up 1-2 times throughout the night due to his kids. When he awakens, he will lay in bed and occasionally look at his. On average, he will stay awake for an hour. He wakes up at 7:00 a.m. on both weekdays and weekends. He typically gets 7 8 hours of sleep per night. He does not stay in bed after waking up in. He currently lives with his and 2 children. He does not consume any caffeinated beverages within 2 hours of bedtime. He will engage in physical exercise before bedtime. He will watch television before falling asleep. He denies taking naps in the afternoon or the. He drinks 3 cups of coffee per day. He denies tobacco, alcohol and recreational drug use. [facility] Past Medical History Medical History Patient denies significant medical history Surgical History Surgical History [place] teeth removed Family History Family History Mother Pancreatic cancer Diverticulitis Father Hypertension Grandparent Parkinson disease Cerebrovascular accident Carcinoma of colon Social History Social History Smoking status: Never smoker Second hand tobacco smoke exposure: No Alcohol intake: never Substance use: never Lack of Transportation: No Lack of Food: Never True Current Housing: I Have Housing Concerned About Future Housing: No Difficulty Paying Gas/Electric Bills: No Difficulty Paying for Meds: No Currently Unemployed: No Education: Master's Degree or Higher Difficulty w/ Childcare or Family Care: No Gender identity (if verbalized by the patient): Male Spiritual care concerns: No Medications Home Medications Medication Instructions Recorded Confirmed Type
[2022-05-23 15:58] VITALS: BMI 26.4
== END 2022-05-17 11:00 | disposition home or self-care (01) ==
LOC: ANHCSM 08:27
PROVIDERS: PCP Internal Medicine; Visit Provider Family Medicine
DX: G47.9 Sleep disorder, unspecified (principal); R06.83 Snoring
CPT/HCPCS: 95800

== ENCOUNTER 2023-05-26 14:18 | Outpatient (CLI) | payer OTHER, SELFPAY ==
[2023-05-26 19:28] LABS: Alanine Aminotransferase 36 U/L (6-50); Albumin Level 4.3 g/dL (3.5-5.1); Alkaline Phosphatase 73 U/L (38-126); Anion Gap 5 mmol/L (8-16); Aspartate Amino Transferase 41 U/L (17-59); Bilirubin,Total 0.5 mg/dL (0.2-1.3); Blood Urea Nitrogen 17 mg/dL (9-20); Calcium 9.5 mg/dL (8.4-10.2); Carbon Dioxide 29 mmol/L (22-30); Chloride 104 mmol/L (98-107); Estimated Glomerular Filt Rate > 60; Glucose 114 mg/dL (65-110); Magnesium 2.2 mg/dL (1.6-2.3); Potassium 4.3 mmol/L (3.4-5.0); Sodium 138 mmol/L (137-145)
[2023-05-26 19:39] LABS: Basophils Percent Auto 0.4 % (0.2-1.2); Eosinophils Absolute Auto 0.2 K/mm3 (0-0.3); Hemoglobin 16.2 g/dL (14.0-18.0); Immature Granulocyte Absolute 0.01 K/mm3 (0.00-0.031); Immature Granulocyte Percent A 0.2 % (0-0.5); Lymphocytes Absolute Auto 1.84 K/mm3 (0.9-3.2); Lymphocytes Percent Auto 32.7 % (18.3-44.2); Mean Corpuscular HGB Conc 33.1 g/dl (32-36); Mean Corpuscular Hemoglobin 31.2 pg (26-34); Mean Corpuscular Volume 94.2 fl (80-100); Mean Platelet Volume 10.9 fl (7.4-10.4); Monocytes Absolute Auto 0.8 K/mm3 (0.1-0.6); Monocytes Percent Auto 13.7 % (2.6-8.5); Neutrophils Absolute Auto 2.8 K/mm3 (1.3-6.7); Platelet Count Result 279 k/mm3 (150-375); Red Cell Distribution Width 13.1 % (11.5-14.5); White Blood Count 5.6 K/mm3 (4.5-10.0)
== END 2023-05-26 14:19 | disposition home or self-care (01) ==
LOC: ANHGOSHLAB 14:19
PROVIDERS: PCP Internal Medicine; Visit Provider Nurse Practitioner
DX: R53.83 Other fatigue (principal)
CPT/HCPCS: 36415; 80053; 83735; 84443; 85025

== ENCOUNTER 2023-06-15 13:15 | Outpatient (CLI) | payer OTHER, SELFPAY ==
--- NOTE | 2023-06-21 15:58 | WPDHOLTEREM ---
Holter/Event Monitor Holter/Event Monitor Date of procedure: 06/15/23 Holter/Event Procedure: 48 Hr Holter Monitor Indications: Syncope Conclusion: 1. 48 hour holter monitor on 06/15/23. 2. Underlying rhythm is sinus rhythm. HR range 41-158 bpm; average HR 61 bpm. HR at 41 bpm as at 23:54. HR at 158 bpm was at 16:10. 3. There are 7 premature supraventricular complexes and 1 supraventricular couplet. No supraventricular tachycardia. 4. No premature ventricular complexes. No ventricular tachycardia. 5. No sinoatrial or atrioventricular blocks. No significant pauses greater than 2 seconds. 6. No symptoms available for correlation.
== END 2023-06-15 13:16 | disposition home or self-care (01) ==
PROVIDERS: PCP Internal Medicine; Visit Provider Nurse Practitioner
DX: R42 Dizziness and giddiness (principal); R55 Syncope and collapse
CPT/HCPCS: 93225; 93226

== ENCOUNTER 2024-03-30 10:01 | Observation (INO) | payer OTHER, SELFPAY ==
[2024-03-30] VITALS (15 sets, daily range): BP systolic 105–131; BP diastolic 58–79; PULSE 45–65; RESP 16–20; TEMP 36.4–37.1; O2SAT 97–100; BMI 26.9
--- NOTE | ~2024-03-30 | XR_ITS ---
EXAMINATION: XR chest 1V portable DATE: 03/30/2024 10:53 INDICATION: Chest pain. TECHNIQUE: A single frontal view of the chest was obtained on 2 radiographs. COMPARISON: Chest 2 views 05/05/2021 FINDINGS: There is no pneumonia, pleural effusion, or pneumothorax. The heart size is normal. IMPRESSION: 1. No acute cardiopulmonary disease. Reviewed, dictated and finalized at location A. [employer]
--- NOTE | 2024-03-30 10:16 | ECG_ITS ---
Test Date: 2024-03-30 10:12:43 Measurements Intervals [place] Rate: 44 P: 13 [place]: 215 QRS: 13 QRSD: 101 T: -15 QT: 414 QTc: 355 Interpretive Statements SINUS BRADYCARDIA WITH FIRST DEGREE AV BLOCK POSSIBLE RIGHT VENTRICULAR CONDUCTION DELAY [RSR (QR) IN V1/V2] MODERATE VOLTAGE CRITERIA FOR LVH, CONSIDER NORMAL VARIANT [MEETS CRITERIA IN ONE OF: R(aVL), S(V1), R(V5), R(V5/V6)+S(V1)] PROBABLE LATERAL MYOCARDIAL INFARCTION , OF INDETERMINATE AGE [35 ms Q WAVE IN I/aVL/V5/V6] MODERATE T-WAVE ABNORMALITY, CONSIDER INFERIOR AND ANTERIOR ISCHEMIA [-0.1+ mV T WAVE IN V3/V4] ABNORMAL ECG No previous ECG available for comparison Electronically Signed On 03-31-2024 10:25:39 SAFETY ATTENDANT by Go Metzger M.D.
--- NOTE | 2024-03-30 10:22 | ED.CHESTPAIN ---
HPI - Chest Pain General Chief Complaint: Chest Pain <Celso Ruby PA-C - Last Filed: 03/30/24 11:33> Stated Complaint: cp, dizzy <Celso Ruby PA-C - Last Filed: 03/30/24 11:33> Time Seen by Provider: 03/30/24 10:54 <Celso Ruby PA-C - Last Filed: 03/30/24 11:33> Focused HPI: This is a 43-year-old male who presents to the ED for PCP office for chief complaint of intermittently chest pain over the past week. Patient reports that he 1st noticed last week while he was in [place] visiting his father. Patient is a runner and states that after his runs he would have some left-sided chest pain that lasted several minutes. He states that it fully went away, however when he got back this week he has had some similar pains while shoveling snow. He states that he has not had chest pain since Tuesday, however was at his doctor's office this morning he had an episode of diaphoresis, feeling lightheaded and faint while they were going over the possible medical issues with his heart. States he is not sure if he is having a panic attack due to this. GENERAL: Well-appearing, well-nourished, and in no acute distress. HEAD: Normocephalic, atraumatic. CHEST: Clear to auscultation. No respiratory distress. HEART: Regular rate and rhythm. NEURO: Alert and oriented x3. Patient screened in triage and initial orders placed. Additional care and disposition to be based upon diagnostic testing and treatment. <Celso Ruby PA-C - Last Filed: 03/30/24 11:33> Source: patient <Celso Ruby PA-C - Last Filed: 03/30/24 11:33> Mode of arrival: ambulatory <Celso Ruby PA-C - Last Filed: 03/30/24 11:33> Limitations: no limitations <RITA Bull Last Filed: 03/30/24 11:33> History of Present Illness HPI narrative: Agree with HPI <Clint Uribe MD - Last Filed: 03/30/24 19:46> Related Data Home Medications: Home Medications ?Medication ?Instructions ?Recorded ?Confirmed ?Last Taken ?Type No Home Medications 03/30/24 03/30/24 Unknown History <Celso Ruby PA-C - Last Filed: 03/30/24 11:33> Allergies/Adverse Reactions: Allergies Allergy/AdvReac Type Severity Reaction Status Date / Time No Known Allergies Allergy Verified 03/30/24 08:29 <Celso Ruby PA-C - Last Filed: 03/30/24 11:33> Review of Systems Review of Systems: All systems reviewed & are unremarkable except as noted in HPI and below <Clint Uribe MD - Last Filed: 03/30/24 19:46> Constitutional: Constitutional: Reports no additional constitutional complaints <Clint Uribe MD - Last Filed: 03/30/24 19:46> ENT: Reports system reviewed and no additional complaints, except as documented <Clint Uribe MD - Last Filed: 03/30/24 19:46> Cardiovascular: Cardiovascular: Reports no additional cardiovascular complaints <Clint Uribe MD - Last Filed: 03/30/24 19:46> Respiratory: Respiratory: Reports no additional respiratory complaints <Clint Uribe MD - Last Filed: 03/30/24 19:46> [facility] Past Medical History Medical History: Medical History Patient denies significant medical history <Celso Ruby PA-C - Last Filed: 03/30/24 11:33> Surgical History Surgical History: Surgical History [place] teeth removed <Celso Ruby PA-C - Last Filed: 03/30/24 11:33> Family History Family History: Family History Mother Pancreatic cancer Diverticulitis Liver cancer Father Hypertension Grandparent Parkinson disease Cerebrovascular accident Carcinoma of colon <RITA Bull Last Filed: 03/30/24 11:33> Social History Social History: Social History Smoking status: Never smoker Second hand tobacco smoke exposure: No Alcohol intake: never Substance use: never Do You Feel Safe in your Home?: Yes Lack of Transportation: No Lack of Food: Never True Current Housing: I Have Housing Concerned About Future Housing: No Difficulty Paying Gas/Electric Bills: No Difficulty Paying for Meds: No Currently Unemployed: No Education: Master's Degree or Higher Difficulty w/ Childcare or Family Care: No Gender identity (if verbalized by the patient): Male Spiritual care concerns: No <Celso Ruby PA-C - Last Filed: 03/30/24 11:33> Exam Narrative: GENERAL: Well-appearing, well-nourished, and in no acute distress. HEAD: Normocephalic, atraumatic. ENT: Mucous membranes moist. NECK: Supple. CHEST: Clear to auscultation. No respiratory distress. HEART: Regular rate and rhythm. Normal peripheral pulses. ABDOMEN: Soft, nontender, nondistended, normal active bowel sounds. EXTREMITIES: Normal range of motion. No edema. SKIN: Warm, dry, no rash. NEURO: Alert and oriented x3. PSYCH: Normal mood and affect. <Clint Uribe MD - Last Filed: 03/30/24 19:46> Course Course Emergency Course: Patient resting comfortably. Informed of results. No chest pain here. Admit to hospitalist Service, trend troponins. EKG earlier showed ST depression inferior leads. There are new inverted T-waves in the precordial leads and inferiorly compared to a couple years ago. <Clint Uribe MD - Last Filed: 03/30/24 19:46> Vital Signs Vital signs: Vital Signs Temperature 97.8 F 03/30/24 10:03 Pulse Rate 65 03/30/24 10:03 Respiratory Rate 16 03/30/24 10:03 Blood Pressure 117/64 03/30/24 10:03 Pulse Oximetry 100 03/30/24 10:03 Oxygen Delivery Room Air 03/30/24 10:03 Temperature 98.7 F 03/30/24 16:32 Pulse Rate 48 L 03/30/24 18:00 Respiratory Rate 18 03/30/24 16:32 Blood Pressure 126/73 03/30/24 16:32 Pulse Oximetry 98 03/30/24 16:32 Oxygen Delivery Room Air 03/30/24 16:00 <Celso Ruby PA-C - Last Filed: 03/30/24 11:33> Vital Signs Temperature 97.8 F 03/30/24 10:03 Pulse Rate 65 03/30/24 10:03 Respiratory Rate 16 03/30/24 10:03 Blood Pressure 117/64 03/30/24 10:03 Pulse Oximetry 100 03/30/24 10:03 Oxygen Delivery Room Air 03/30/24 10:03 Temperature 98.7 F 03/30/24 16:32 Pulse Rate 48 L 03/30/24 18:00 Respiratory Rate 18 03/30/24 16:32 Blood Pressure 126/73 03/30/24 16:32 Pulse Oximetry 98 03/30/24 16:32 Oxygen Delivery Room Air 03/30/24 16:00 <Clint Uribe MD - Last Filed: 03/30/24 19:46> MDM - Chest Pain Lab Data Result diagrams: 03/30/24 10:34 03/30/24 10:34 <Celso Ruby PA-C - Last Filed: 03/30/24 11:33> Labs: Lab Results 03/30/24 Range/Units 10:34 WBC 4.8 (4.5-10.0) K/mm3 RBC 5.05 (4.6-6.20) M/mm3 Hgb 15.8 (14.0-18.0) g/dL Hct 46.8 (42.0-52.0) % MCV 92.7 (80-100) fl MCH 31.3 (26-34) pg MCHC 33.8 (32-36) g/dl RDW 13.1 (11.5-14.5) % Plt Count 266 (150-375) k/mm3 MPV 10.3 (7.4-10.4) fl Immature Gran % (Auto) 0.4 (0-0.5) % Neut % (Auto) 57.1 (45.5-73.1) % Lymph % (Auto) 28.8 (18.3-44.2) % Davis % (Auto) 9.5 H (2.6-8.5) % Eos % (Auto) 3.8 (0-4.4) % Baso % (Auto) 0.4 (0.2-1.2) % Lymph # (Auto) 1.37 (0.9-3.2) K/mm3 Davis # (Auto) 0.5 (0.1-0.6) K/mm3 Eos # (Auto) 0.2 (0-0.3) K/mm3 Baso # (Auto) 0.0 (0.0-0.1) K/mm3 Abs Immat Gran (auto) 0.02 (0.00-0.031) K/mm3 Absolute Neuts (auto) 2.7 (1.3-6.7) K/mm3 Absolute Nucleated RBC 0.000 (0.0-0.012) K/mm3 Nucleated RBC % 0.0 (0.0-0.2) % PT 14.2 (11.1-14.7) Seconds INR 1.1 APTT 22.6 (22.3-36.8) Seconds Sodium 138 (137-145) mmol/L Potassium 4.6 (3.4-5.0) mmol/L Chloride 104 (98-107) mmol/L Carbon Dioxide 27 (22-30) mmol/L Anion Gap 7 (4-12) mmol/L BUN 18 (9-20) mg/dL Creatinine 0.85 (0.7-1.3) mg/dL Estim Creat Clear Calc 106 ml/min Estimated GFR > 60 (59 - ) Glucose 105 (65-110) mg/dL Calcium 9.2 (8.4-10.2) mg/dL Total Bilirubin 0.9 (0.2-1.3) mg/dL AST 29 (17-59) U/L ALT 27 (6-50) U/L Alkaline Phosphatase 54 (38-126) U/L Troponin I < 0.012 (0.000-0.034) ng/mL NT-Pro-B Natriuret Pep 49 (19.9-100) pg/mL Total Protein 7.0 (6.3-8.2) g/dL Albumin 4.2 (3.5-5.1) g/dL <Celso Ruby PA-C - Last Filed: 03/30/24 11:33> Lab Results 03/30/24 Range/Units 10:34 WBC 4.8 (4.5-10.0) K/mm3 RBC 5.05 (4.6-6.20) M/mm3 Hgb 15.8 (14.0-18.0) g/dL Hct 46.8 (42.0-52.0) % MCV 92.7 (80-100) fl MCH 31.3 (26-34) pg MCHC 33.8 (32-36) g/dl RDW 13.1 (11.5-14.5) % Plt Count 266 (150-375) k/mm3 MPV 10.3 (7.4-10.4) fl Immature Gran % (Auto) 0.4 (0-0.5) % Neut % (Auto) 57.1 (45.5-73.1) % Lymph % (Auto) 28.8 (18.3-44.2) % Davis % (Auto) 9.5 H (2.6-8.5) % Eos % (Auto) 3.8 (0-4.4) % Baso % (Auto) 0.4 (0.2-1.2) % Lymph # (Auto) 1.37 (0.9-3.2) K/mm3 Davis # (Auto) 0.5 (0.1-0.6) K/mm3 Eos # (Auto) 0.2 (0-0.3) K/mm3 Baso # (Auto) 0.0 (0.0-0.1) K/mm3 Abs Immat Gran (auto) 0.02 (0.00-0.031) K/mm3 Absolute Neuts (auto) 2.7 (1.3-6.7) K/mm3 Absolute Nucleated RBC 0.000 (0.0-0.012) K/mm3 Nucleated RBC % 0.0 (0.0-0.2) % PT 14.2 (11.1-14.7) Seconds INR 1.1 APTT 22.6 (22.3-36.8) Seconds Sodium 138 (137-145) mmol/L Potassium 4.6 (3.4-5.0) mmol/L Chloride 104 (98-107) mmol/L Carbon Dioxide 27 (22-30) mmol/L Anion Gap 7 (4-12) mmol/L BUN 18 (9-20) mg/dL Creatinine 0.85 (0.7-1.3) mg/dL Estim Creat Clear Calc 106 ml/min Estimated GFR > 60 (59 - ) Glucose 105 (65-110) mg/dL Calcium 9.2 (8.4-10.2) mg/dL Total Bilirubin 0.9 (0.2-1.3) mg/dL AST 29 (17-59) U/L ALT 27 (6-50) U/L Alkaline Phosphatase 54 (38-126) U/L Troponin I < 0.012 (0.000-0.034) ng/mL NT-Pro-B Natriuret Pep 49 (19.9-100) pg/mL Total Protein 7.0 (6.3-8.2) g/dL Albumin 4.2 (3.5-5.1) g/dL <Clint Uribe MD - Last Filed: 03/30/24 19:46> Discharge Plan Discharge Clinical Impression: Chest pain <Celso Ruby PA-C - Last Filed: 03/30/24 11:33> Patient Disposition: Still a Patient <Celso Ruby PA-C - Last Filed: 03/30/24 11:33> Condition: Stable <Celso Ruby PA-C - Last Filed: 03/30/24 11:33>
--- NOTE | 2024-03-30 10:40 | ECG_ITS ---
Test Date: 2024-03-30 10:37:07 Measurements Intervals [place] Rate: 55 P: 60 IN: 214 QRS: -31 QRSD: 107 T: -5 QT: 415 QTc: 397 Interpretive Statements SINUS BRADYCARDIA WITH FIRST DEGREE AV BLOCK POSSIBLE LEFT ATRIAL ENLARGEMENT [-0.1mV P-WAVE IN V1/V2] LEFT AXIS DEVIATION [QRS AXIS < -30] INCOMPLETE RIGHT BUNDLE BRANCH BLOCK [90+ ms QRS DURATION, TERMINAL R IN V1/V2, 40+ ms S IN I/aVL/V4/V5/V6] POSSIBLE LEFT VENTRICULAR HYPERTROPHY [VOLTAGE CRITERIA PLUS LAE OR QRS WIDENING] MODERATE T-WAVE ABNORMALITY, CONSIDER ANTERIOR ISCHEMIA [-0.1+ mV T-WAVE IN V3/V4] ABNORMAL ECG Electronically Signed On 03-31-2024 10:30:40 [employer] by Go Metzger M.D.
--- NOTE | 2024-03-30 10:41 | ECG_ITS ---
Test Date: 2024-03-30 10:22:33 Measurements Intervals [place] Rate: 48 P: -26 [place]: 203 QRS: -27 QRSD: 108 T: -30 QT: 440 QTc: 396 Interpretive Statements SINUS BRADYCARDIA POSSIBLE RIGHT VENTRICULAR CONDUCTION DELAY [RSR (QR) IN V1/V2] VOLTAGE CRITERIA FOR LVH [MEETS CRITERIA IN ONE OF: R(aVL), S(V1), R(V5), R(V5/V6)+S(V1)] LATERAL MYOCARDIAL INFARCTION , OF INDETERMINATE AGE [40+ ms Q WAVE AND/OR ST/T ABNORMALITY IN I/aVL/V5/V6] Nondiagnostic lateral ST elevation MODERATE T-WAVE ABNORMALITY, CONSIDER ANTERIOR ISCHEMIA [-0.1+ mV T WAVE IN V3/V4] ABNORMAL ECG Electronically Signed On 03-31-2024 10:29:45 [employer] by Go Metzger M.D.
[2024-03-30 10:43] LABS: Basophils Percent Auto 0.4 % (0.2-1.2); Eosinophils Absolute Auto 0.2 K/mm3 (0-0.3); Eosinophils Percent Auto 3.8 % (0-4.4); Hematocrit 46.8 % (42.0-52.0); Hemoglobin 15.8 g/dL (14.0-18.0); Immature Granulocyte Absolute 0.02 K/mm3 (0.00-0.031); Immature Granulocyte Percent A 0.4 % (0-0.5); Lymphocytes Absolute Auto 1.37 K/mm3 (0.9-3.2); Lymphocytes Percent Auto 28.8 % (18.3-44.2); Mean Corpuscular HGB Conc 33.8 g/dl (32-36); Mean Corpuscular Hemoglobin 31.3 pg (26-34); Mean Corpuscular Volume 92.7 fl (80-100); Mean Platelet Volume 10.3 fl (7.4-10.4); Monocytes Absolute Auto 0.5 K/mm3 (0.1-0.6); Monocytes Percent Auto 9.5 % (2.6-8.5); Neutrophils Absolute Auto 2.7 K/mm3 (1.3-6.7); Neutrophils Percent Auto 57.1 % (45.5-73.1); Platelet Count Result 266 k/mm3 (150-375); Red Blood Count 5.05 M/mm3 (4.6-6.20); Red Cell Distribution Width 13.1 % (11.5-14.5); White Blood Count 4.8 K/mm3 (4.5-10.0)
[2024-03-30 10:55] LABS: Alanine Aminotransferase 27 U/L (6-50); Albumin Level 4.2 g/dL (3.5-5.1); Alkaline Phosphatase 54 U/L (38-126); Anion Gap 7 mmol/L (4-12); Aspartate Amino Transferase 29 U/L (17-59); Bilirubin,Total 0.9 mg/dL (0.2-1.3); Blood Urea Nitrogen 18 mg/dL (9-20); Calcium 9.2 mg/dL (8.4-10.2); Carbon Dioxide 27 mmol/L (22-30); Chloride 104 mmol/L (98-107); Estimated CRCL calculation 106 ml/min; Estimated Glomerular Filt Rate > 60; Glucose 105 mg/dL (65-110); Potassium 4.6 mmol/L (3.4-5.0); Sodium 138 mmol/L (137-145)
[2024-03-30 10:59] LABS: INR 1.1; Prothrombin Time 14.2 Seconds (11.1-14.7)
[2024-03-30 11:07] LABS: NT Pro B Type Natriuretic Pept 49 pg/mL (19.9-100); Troponin I < 0.012 ng/mL (0.000-0.034)
[2024-03-30 11:17] LABS: Partial Thromboplastin Time 22.6 Seconds (22.3-36.8)
--- NOTE | 2024-03-30 13:36 | PM.CNCAR ---
Assessment and Plan Assessment and plan (1) Chest pain: Code(s): R07.9 - Chest pain, unspecified Status: Acute Assessment and Plan: Presents with chest pain which is predominantly atypical chest pain. However, patient's report of developing a pressure-like chest discomfort while shoveling snow raises concern for myocardial ischemia. His 1st troponin level is negative. His ECG shows sinus bradycardia with first-degree AV block and some ischemic changes with lateral T-wave inversions which are new compared to ECG from 2021. Continue to trend troponin levels 2D echo with Doppler will be ordered and reviewed If troponin levels remain negative, he will rule out for acute coronary syndrome. Further recommendations to follow review of echocardiogram and subsequent troponin levels. (2) Syncope: Code(s): R55 - Syncope and collapse Status: Acute Assessment and Plan: Etiology is unclear. Patient has had several syncopal episodes over the years and had a Holter monitor in June of last year that was unrevealing for any arrhythmias/cause for syncope. Can consider longer telemetry monitoring upon discharge or perhaps placement of a loop recorder. Continue to monitor on telemetry. Check orthostatic blood pressure History of Present Illness History of Present Illness Consult date/time: 03/30/24 13:36 Requesting physician: Clint Uribe MD Consult reason: chest pain Reason For Visit: Chest Pain Narrative: Stephan Andre is a 43 year old male with no significant past medical history. He presents to the hospital with a chief complaint of chest pain. Cardiology has been consulted for evaluation his chest pain. Patient states that he has been having intermittent substernal and left-sided chest pain for about a week. He had traveled to [place] to visit family and developed chest pain after going for a run. States that the chest pain came and went intermittently when he was resting. At that time, he had attributed his discomfort to overuse of his arm while playing with his daughter in the pool. However, he once again developed left-sided chest pain while shoveling snow yesterday. He reports the pain being worse when he was holding the shovel with his left hand versus his right hand. The pain subsided immediately with cessation of that activity. He denies any associated shortness of breath, diaphoresis, nausea, syncope. However, he has experienced what he feels to believe is vasovagal syncope due most recently occurring this morning when he was at his primary care doctor's office. This has also happened in the past and he was placed on a Holter monitor which was unrevealing. At the time of my evaluation, he is resting comfortably in bed and is not in any acute distress. Review of Systems Review of Systems: All systems reviewed & are unremarkable except as noted in HPI and below PMFSH Past Medical History Medical History Patient denies significant medical history Surgical History Surgical History [place] teeth removed Family History Family History Mother Pancreatic cancer Diverticulitis Liver cancer Father Hypertension Grandparent Parkinson disease Cerebrovascular accident Carcinoma of colon Social History Social History Smoking status: Never smoker Second hand tobacco smoke exposure: No Alcohol intake: never Substance use: never Lack of Transportation: No Lack of Food: Never True Current Housing: I Have Housing Concerned About Future Housing: No Difficulty Paying Gas/Electric Bills: No Difficulty Paying for Meds: No Currently Unemployed: No Education: Master's Degree or Higher Difficulty w/ Childcare or Family Care: No Gender identity (if verbalized by the patient): Male Spiritual care concerns: No Meds Home Medications and Allergies Home Medications ?Medication ?Instructions ?Recorded ?Confirmed ?Type No Home Medications 03/30/24 03/30/24 History Allergies Allergy/AdvReac Type Severity Reaction Status Date / Time No Known Allergies Allergy Verified 03/30/24 08:29 Vital Signs Vital Signs - 24 hr 03/30/24 10:03 03/30/24 10:11 03/30/24 10:59 Temperature 36.6 C Pulse Rate 65 46 L Respiratory Rate 16 Blood Pressure 117/64 Pulse Oximetry 100 Oxygen Delivery Room Air Room Air 03/30/24 10:59 03/30/24 12:46 03/30/24 13:14 Temperature Pulse Rate 47 L 54 L 55 L Respiratory Rate 16 16 16 Blood Pressure 127/69 130/79 129/76 Pulse Oximetry 100 100 99 Oxygen Delivery Exam Const: General: comfortable, no acute distress, alert and awake Orientation/consciousness: patient oriented x3 HENMT: Head: normal to inspection Eyes: General: appearance normal, both eyes and all related structures Pupils: Equal, round and reactive pupils present Neck: Neck: normal visual inspection, supple and no JVD Carotids: normal carotid upstroke Chest: Other: No reproducible chest wall pain to palpation Resp: Effort & Inspection: normal respiratory effort Auscultation: clear to auscultation bilaterally Cardio: Rate: regular rate Rhythm: regular rhythm Heart sounds: S1 normal heart sound present, S2 normal heart sound present and no murmurs GI: Auscultation: normal bowel sounds Skin: General skin exam: normal color Neuro: General: patient oriented x3 Cranial nerves: Yes Equal, round and reactive pupils present Extrem: General: normal to inspection Psych: Appearance: grossly normal Mental Status: mental status grossly normal Results Labs and Meds 03/30/24 10:34 03/30/24 10:34 Lab results: Cardiac Enzymes 03/30/24 Range/Units 10:34 AST 29 (17-59) U/L Troponin I < 0.012 (0.000-0.034) ng/mL Coagulation 03/30/24 Range/Units 10:34 PT 14.2 (11.1-14.7) Seconds APTT 22.6 (22.3-36.8) Seconds CBC 03/30/24 Range/Units 10:34 WBC 4.8 (4.5-10.0) K/mm3 RBC 5.05 (4.6-6.20) M/mm3 Hgb 15.8 (14.0-18.0) g/dL Hct 46.8 (42.0-52.0) % Plt Count 266 (150-375) k/mm3 Lymph # (Auto) 1.37 (0.9-3.2) K/mm3 [place] # (Auto) 0.5 (0.1-0.6) K/mm3 Eos # (Auto) 0.2 (0-0.3) K/mm3 Baso # (Auto) 0.0 (0.0-0.1) K/mm3 Comprehensive Metabolic Panel 03/30/24 Range/Units 10:34 Sodium 138 (137-145) mmol/L Potassium 4.6 (3.4-5.0) mmol/L Chloride 104 (98-107) mmol/L Carbon Dioxide 27 (22-30) mmol/L BUN 18 (9-20) mg/dL Creatinine 0.85 (0.7-1.3) mg/dL Glucose 105 (65-110) mg/dL Calcium 9.2 (8.4-10.2) mg/dL AST 29 (17-59) U/L ALT 27 (6-50) U/L Alkaline Phosphatase 54 (38-126) U/L Total Protein 7.0 (6.3-8.2) g/dL Albumin 4.2 (3.5-5.1) g/dL Patient Weight 03/30/24 23:59 Weight 86.36 kg
--- NOTE | 2024-03-30 14:07 | P.HP_ITS ---
H&P: HPI History of Present Illness Date/Time: 03/30/24 14:07 Chief Complaint: Chest pain Narrative: 43-year-old male denies significant medical history presents the hospital with acute chest pain. Patient states that he has been having intermittent substernal and left-sided chest pain for about a week. He had traveled to [place] to visit family and developed chest pain after going for a run. States that the chest pain came and went intermittently when he was resting. While at the hospital talking to the doctor about the possibility that it may of had a heart attack patient states that he became very lightheaded, extremely diaphoretic, felt like he was going to have a bowel movement and was worried he was going to pass out however he did not pass out or lose consciousness. Patient states that he is extremely active and often runs. He did say he will more stressful of weak than normal. He states that his kidney Lars[place] with at home any had to help him with E learning due to the snow and school being canceled. Lab work in the emergency room was within normal limits, troponin below 0.012, chest x-ray shows no acute process. EKG shows sinus Pradip. Patient was given 324 mg of aspirin in the ED was seen by Cardiology with recommendations for 24 hour observation. Review of Systems Review of Systems: 12 systems were reviewed and are negativ e except for as per HPI. [facility] Past Medical History Medical History Patient denies significant medical history Surgical History Surgical History [place] teeth removed Family History Family History Mother Pancreatic cancer Diverticulitis Liver cancer Father Hypertension Grandparent Parkinson disease Cerebrovascular accident Carcinoma of colon Social History Social History Smoking status: Never smoker Second hand tobacco smoke exposure: No Alcohol intake: never Substance use: never Do You Feel Safe in your Home?: Yes Lack of Transportation: No Lack of Food: Never True Current Housing: I Have Housing Concerned About Future Housing: No Difficulty Paying Gas/Electric Bills: No Difficulty Paying for Meds: No Currently Unemployed: No Education: Master's Degree or Higher Difficulty w/ Childcare or Family Care: No Gender identity (if verbalized by the patient): Male Spiritual care concerns: No Meds Home Medications and Allergies Home Medications ?Medication ?Instructions ?Recorded ?Confirmed ?Type No Home Medications 03/30/24 03/30/24 History Allergies Allergy/AdvReac Type Severity Reaction Status Date / Time No Known Allergies Allergy Verified 03/30/24 08:29 Vital Signs Vital Signs - 24 hr 03/30/24 10:03 03/30/24 10:11 03/30/24 10:59 Temperature 97.8 F Pulse Rate 65 46 L Respiratory Rate 16 Blood Pressure 117/64 Pulse Oximetry 100 Oxygen Delivery Room Air Room Air 03/30/24 10:59 03/30/24 12:46 03/30/24 13:14 Temperature Pulse Rate 47 L 54 L 55 L Respiratory Rate 16 16 16 Blood Pressure 127/69 130/79 129/76 Pulse Oximetry 100 100 99 Oxygen Delivery Exam Narrative: General: well appearing, appears stated age. HEENT: normocephalic, atraumatic. Mucous membranes moist. EOMI, PERRLA, bilateral sclera anicteric, no conjunctival injection. Neck supple without JVD, lymphadenopathy, or bruit. Respiratory: clear to ascultation bilaterally. No rales/rhonic/wheezes. Cardiovascular: Regular rate and rhythm, normal S1-S2 upon ascultation. No murmurs, rubs, or clicks. PMI is nondisplaced, capillary refill less than 3 second. Abdomen: Soft, round, no pulsatile masses, nondistended and nontender. No rebound, no guarding. No CVA tenderness, no hepatosplenomegaly. Bowel sounds present to all four quadrants. No high pitch or tinkling sounds, resonant to percussion. Extremities: No cyanosis, clubbing, or edema present. Pulses are palpable 2/2. Active ROM to all four extremities. Neuro: Alert and orientated x 4. PERRLA. Cranial nerves 2-12 intact without focal deficit. Skin: Warm, dry, and intact, without rash, erythema, or lesion. Psych: pleasant, cooperative, normal speech, normal affect, no hallucinations, no dysarthia H&P: Results Labs Labs: Short CBC 03/30/24 Range/Units 10:34 WBC 4.8 (4.5-10.0) K/mm3 Hgb 15.8 (14.0-18.0) g/dL Hct 46.8 (42.0-52.0) % Plt Count 266 (150-375) k/mm3 BMP 03/30/24 10:34 Sodium 138 Potassium 4.6 Chloride 104 Carbon Dioxide 27 BUN 18 Creatinine 0.85 Glucose 105 Calcium 9.2 Cardiac Enzymes 03/30/24 Range/Units 10:34 Troponin I < 0.012 (0.000-0.034) ng/mL Liver Function 03/30/24 Range/Units 10:34 Total Bilirubin 0.9 (0.2-1.3) mg/dL AST 29 (17-59) U/L ALT 27 (6-50) U/L Alkaline Phosphatase 54 (38-126) U/L Albumin 4.2 (3.5-5.1) g/dL Assessment and Plan Assessment and plan (1) Chest pain: Code(s): R07.9 - Chest pain, unspecified Status: Acute Assessment and Plan: Cardiology consulted Troponin negative Continue to trend 324 mg aspirin given Telemetry monitoring Cardiology was keep the patient overnight for continuing monitoring due to abnormal EKG Echocardiogram pending (2) Patient denies significant medical history: Status: Acute Assessment and Plan: No home meds Quality VTE Prophylaxis VTE prophylaxis: mechanical ordered
[2024-03-30 15:09] LABS: Troponin I < 0.012 ng/mL (0.000-0.034)
--- NOTE | 2024-03-30 15:49 | ADMGEN ---
This patient, Stephan Andre, was admitted to IMU Room 209-01 on 03/30/24 at 1404. Patient/family oriented to hospital policies and general routines including ID bracelet, bed and alarms, visiting hours, pain management, procedures, bathroom and other care routines, personal items, smoking policy, room service/diet, and visiting hours. Information on how to activate the Rapid Response Team has been discussed. Patient/Family are encouraged to report perceived risks to care and to ask questions if they do not understand what they are told or what they should do.
[2024-03-30 16:02] LABS: Cholesterol 223 mg/dL (0-200); HDL Direct 41 mg/dL; Triglycerides 79 mg/dL (<150)
[2024-03-30 16:13] LABS: LDL Cholesterol Direct 139 mg/dL
[2024-03-31] VITALS (18 sets, daily range): BP systolic 110–144; BP diastolic 64–80; PULSE 43–66; RESP 12–18; TEMP 36.7–37.2; O2SAT 98–100
--- NOTE | 2024-03-31 | ECHO_ITS ---
Patient Info Name: Stephan Andre Age: 43 years : 1980 Gender: Male Ht: 71 in Wt: 193 lbs BSA: 2.11 m2 HR: 52 bpm BP: 130 / 67 mmHg Technical Quality: Good Exam Date: 03/31/2024 4:31 PM Exam Location: Echo Lab Patient Status: Inpatient Admit Date: 03/30/2024 Staff Ordering Physician: Chris Gonzales MD [facility] Instructor: Charline Garcia RDCS Attending Provider: Bal Christie MD Referring Physician: Christian KERR; Exam Type: CA echo doppler color flow Study Info Indications R07.9 - Chest pain, unspecified Complete two-dimensional, color flow and Doppler transthoracic echocardiogram is performed. Summary 1. Complete two-dimensional, color flow and Doppler transthoracic echocardiogram is performed. 2. Left ventricular systolic function is normal, estimated at 60-65%. 3. There is mildly increased left ventricular wall thickness. 4. The left ventricular diastolic function is normal. 5. There is mild mitral valve regurgitation. 6. There is mild tricuspid valve regurgitation. 7. No pulmonary hypertension, estimated pulmonary arterial systolic pressure is 26 mmHg. 8. There is mild pulmonic regurgitation. Left Ventricle Left ventricular chamber dimension is normal. Left ventricular systolic function is normal, estimated at 60-65%. There is mildly increased left ventricular wall thickness. Left ventricular septal wall motion is normal. The left ventricular diastolic function is normal. Right Ventricle Right ventricular chamber dimension is normal. Right ventricular systolic function is normal. Left Atria Left atrial chamber dimension is normal. Right Atria Right atrial chamber dimension is normal. Atrial Septum Intact interatrial septum visualized by color flow imaging. Aortic Valve The aortic valve is trileaflet. There is no aortic valve sclerosis. There is no aortic valve stenosis. There is no aortic valve regurgitation. Pulmonic Valve The pulmonic valve is normal. There is no pulmonic valve stenosis. There is mild pulmonic regurgitation. Mitral Valve The mitral valve has normal leaflets. There is no mitral valve stenosis. There is mild mitral valve regurgitation. Tricuspid Valve The tricuspid valve leaflets are normal. There is no significant tricuspid valve stenosis. There is mild tricuspid valve regurgitation. No pulmonary hypertension, estimated pulmonary arterial systolic pressure is 26 mmHg. Pericardium/Pleural The pericardium appears normal. There is no pericardial effusion. Inferior Vena Cava Normal inferior vena cava with >50% collapse upon inspiration consistent with Empty right atrial pressure, Empty. Aorta The aortic root size at the sinus of Valsalva is normal. The prox ascending aorta size is normal. Left Ventricular Outflow Tract Name Value Normal LVOT 2D LVOT Diameter 2.4 cm LVOT Doppler LVOT Peak Velocity 180 cm/s LVOT Peak Gradient 13 mmHg LVOT Mean Gradient 7 mmHg LVOT VTI 37 cm LVOT VTI/AV VTI Ratio 1.0 LVOT Stroke Volume 167 ml LVOT CO 8.6 l/min LVOT CI 4.1 l/min/m2 Pulmonic Valve Name Value Normal PV Doppler PV Peak Velocity 121 cm/s PV Peak Gradient 6 mmHg Mitral Valve Name Value Normal MV Doppler MV Peak Gradient 3 mmHg MV Mean Gradient [address] [facility] 257 cm/s2 MV PHT 82 ms MV Area (PHT) 2.7 cm2 4.0-5.0 MV Area (Cont Eq VTI) 5.5 cm2 MV Diastolic Function MV E Peak Velocity 73 cm/s MV A Peak Velocity 57 cm/s MV E/A 1.3 MV Decel Time 284 ms MV Annular TDI MV Septal e' Velocity 7.6 cm/s >=8.0 MV E/e' (Septal) 9.6 <=8.0 MV Lateral e' Velocity 11.2 cm/s >=10.0 MV E/e' (Lateral) 6.5 <=8.0 MV e' Average 9.41 MV E/e' (Average) 8.0 Tricuspid Valve Name Value Normal TV Regurgitation Doppler TR Peak Velocity 281 cm/s TR Peak Gradient 26 mmHg Estimated PAP/RSVP PA Systolic Pressure 26 mmHg <36 TV Annular TDI TV Lateral Mindy s' Velocity 12.9 cm/s 9.5-18.7 Aortic Valve Name Value Normal AV Doppler AV Peak Velocity 187 cm/s AV Peak Gradient 14 mmHg AV Mean Gradient 7 mmHg AV VTI 39 cm AV Area (Cont Eq VTI) 4.3 cm2 >=3.0 AV Area (Cont Eq Blaine) 4.4 cm2 AV V1/V2 Ratio 0.97 AV Regurgitation 2D LVOT Area 4.5 cm2 Ventricles Name Value Normal LV Dimensions 2D/MM IVS Diastolic Thickness (2D) 0.9 cm 0.6-1.0 LVID Diastole (2D) 5.5 cm 4.2-5.8 LVIW Diastolic Thickness (2D) 0.9 cm 0.6-1.0 LVID Systole (2D) 4.1 cm 2.5-4.0 LVOT Diameter 2.4 cm LV Mass (2D Cubed) 192.26 g 88.00-224.00 LV Mass Index (2D Cubed) 91 g/m2 49-115 Relative Wall Thickness (2D) 0.32 LV Fractional Shortening/Ejection Fraction 2D/MM LV Fractional Shortening (2D) 25 % 25-43 LV EF (2D Teicholz) 50 % 52-72 LV Diastolic Volume (4C MOD) 204 ml LV EF (4C MOD) 68 % LV Diastolic Length (4C) 10.5 cm LV Systolic Length (4C) 8.6 cm LV Stroke Volume (4C MOD) 139 ml Atria Name Value Normal LA Dimensions LA Volume (4C A-L) 74 ml RA Dimensions RA Area (4C) 18.8 cm2 <=18.0 Report Signatures
[2024-03-31 05:28] LABS: Hematocrit 48.5 % (42.0-52.0); Hemoglobin 16.2 g/dL (14.0-18.0); Mean Corpuscular HGB Conc 33.4 g/dl (32-36); Mean Corpuscular Hemoglobin 31.3 pg (26-34); Mean Corpuscular Volume 93.6 fl (80-100); Mean Platelet Volume 10.5 fl (7.4-10.4); Platelet Count Result 267 k/mm3 (150-375); Red Blood Count 5.18 M/mm3 (4.6-6.20); White Blood Count 6.8 K/mm3 (4.5-10.0)
[2024-03-31 05:48] LABS: Anion Gap 6 mmol/L (4-12); Blood Urea Nitrogen 14 mg/dL (9-20); Calcium 8.9 mg/dL (8.4-10.2); Carbon Dioxide 29 mmol/L (22-30); Chloride 104 mmol/L (98-107); Estimated CRCL calculation 109 ml/min; Estimated Glomerular Filt Rate > 60; Glucose 99 mg/dL (65-110); Potassium 4.2 mmol/L (3.4-5.0); Sodium 139 mmol/L (137-145)
[2024-03-31] MEDS: ACETAMINOPHEN 325 MG TABLET 650 MG PO ×2 (06:09→18:51)
[2024-03-31] MEDS: ENOXAPARIN 40 MG/0.4 ML SYRINGE SUB-Q (09:54)
--- NOTE | 2024-03-31 13:16 | P.PNIM_ITS ---
Progress Note: A&P Assessment and Plan (1) Chest pain: Code(s): R07.9 - Chest pain, unspecified Status: Acute Assessment and Plan: Cardiology consulted Troponin negative Continue to trend 324 mg aspirin given Telemetry monitoring Cardiology suggested to keep the patient overnight for continuing monitoring due to abnormal EKG Echocardiogram pending (2) Patient denies significant medical history: Status: Acute Assessment and Plan: No home meds Plan 03/31/2024 Continued cardiac enzymes and monitor closely. Cardiology consult. Subjective Date/time seen: 03/31/24 13:16 Interval history: Patient was seen during morning rounds today. Patient is feeling better. No chest pain at present time. No shortness of breath. No abdominal pain, nausea, no vomiting. Review of Systems Review of Systems: 12 systems were reviewed and are negativ e except for as per HPI. Exam Narrative: General: well appearing, appears stated age. HEENT: normocephalic, atraumatic. Mucous membranes moist. EOMI, PERRLA, bilateral sclera anicteric, no conjunctival injection. Neck supple without JVD, lymphadenopathy, or bruit. Respiratory: clear to ascultation bilaterally. No rales/rhonic/wheezes. Cardiovascular: Regular rate and rhythm, normal S1-S2 upon ascultation. No murmurs, rubs, or clicks. PMI is nondisplaced, capillary refill less than 3 se cond. Abdomen: Soft, round, no pulsatile masses, nondistended and nontender. No rebound, no guarding. No CVA tenderness, no hepatosplenomegaly. Bowel sounds present to all four quadrants. No high pitch or tinkling sounds, resonant to percussion. Extremities: No cyanosis, clubbing, or edema present. Pulses are palpable 2/2. Active ROM to all four extremities. Neuro: Alert and orientated x 4. PERRLA. Cranial nerves 2-12 intact without focal deficit. Skin: Warm, dry, and intact, without rash, erythema, or lesion. Psych: pleasant, cooperative, normal speech, normal affect, no hallucinations, no dysarthia Objective Data Vital Signs Vital Signs: Vital Signs - 24 hr 03/30/24 14:04 03/30/24 14:20 03/30/24 14:34 Temperature 36.4 C L Pulse Rate 55 L 51 L Respiratory Rate 20 Blood Pressure 131/61 Pulse Oximetry 97 Oxygen Delivery Room Air 03/30/24 16:00 03/30/24 16:00 03/30/24 16:32 Temperature 37.1 C Pulse Rate 46 L 50 L Respiratory Rate 18 Blood Pressure 126/73 Pulse Oximetry 98 Oxygen Delivery Room Air 03/30/24 18:00 03/30/24 20:00 03/30/24 20:12 Temperature 37.1 C Pulse Rate 48 L 45 L 47 L Respiratory Rate 18 Blood Pressure 118/72 Pulse Oximetry 98 Oxygen Delivery 03/30/24 22:00 03/30/24 22:05 03/30/24 23:20 Temperature Pulse Rate 51 L 47 L 46 L Respiratory Rate 18 18 Blood Pressure Pulse Oximetry 98 98 Oxygen Delivery Room Air Room Air 03/30/24 23:50 03/31/24 00:00 03/31/24 02:00 Temperature 37.0 C Pulse Rate 46 L 45 L 44 L Respiratory Rate 18 Blood Pressure 105/58 L Pulse Oximetry 98 Oxygen Delivery 03/31/24 04:00 03/31/24 04:00 03/31/24 05:52 Temperature 37.1 C Pulse Rate 43 L 45 L 43 L Respiratory Rate 18 18 Blood Pressure 110/64 Pulse Oximetry 98 98 Oxygen Delivery Room Air 03/31/24 06:00 03/31/24 07:25 03/31/24 11:33 Temperature 36.9 C 36.7 C Pulse Rate 44 L 53 L 52 L Respiratory Rate 14 12 Blood Pressure 125/71 130/67 Pulse Oximetry 98 100 Oxygen Delivery Intake/Output Intake/Output: Intake & Output 03/28/24 03/29/24 03/30/24 03/31/24 23:59 23:59 23:59 23:59 Intake Total 540 2520 Output Total 600 1970 Balance -60 550 Meds/Results Medications: Active Medications Generic Name Dose Route Start Last Admin Trade Name Freq PRN Reason Stop Dose Admin Acetaminophen 650 mg 03/30/24 12:19 03/31/24 06:09 Acetaminophen 325 Mg Tablet PO 650 mg Q4H PRN Administration Mild Pain (1-3) or Fever Hydrocodone Bitart/Acetaminophen 1 tab 03/30/24 12:19 Hydrocodone/Acetaminophen (*Crx) 5-325 Mg Tablet PO Q4H PRN Pain Rated 4-6 Enoxaparin Sodium 40 mg 03/31/24 09:00 03/31/24 09:54 Enoxaparin 40 Mg/0.4 Ml Syringe SUB-Q 40 mg DAILY LYNN Administration Ondansetron HCl 4 mg 03/30/24 12:19 Ondansetron Inj 4 Mg/2 Ml Vial IV PUSH Q4H PRN Nausea Perflutren Lipid Microsphere 0 ml 03/31/24 09:08 Perflutren Lipid Microspheres 1.5 Ml Vial Diluted To 10 Ml Total Volume IV PUSH 04/03/24 09:09 ONCE PRN adequate visualization Protocol Radiology Results: ITS Impressions Chest X-Ray 03/30/24 10:55 IMPRESSION: 1. No acute cardiopulmonary disease. Labs Labs: Laboratory Results - last 24 hr 03/30/24 03/30/24 03/31/24 14:30 14:33 04:32 WBC 6.8 RBC 5.18 Hgb 16.2 Hct 48.5 MCV 93.6 MCH 31.3 MCHC 33.4 RDW 13.0 Plt Count 267 MPV 10.5 H Sodium 139 Potassium 4.2 Chloride 104 Carbon Dioxide 29 Anion Gap 6 BUN 14 Creatinine 0.83 Estim Creat Clear Calc 109 Estimated GFR > 60 Glucose 99 Calcium 8.9 Troponin I < 0.012 Triglycerides 79 Cholesterol 223 H LDL Cholesterol Direct 139 HDL Direct 41 Quality VTE Prophylaxis VTE prophylaxis: mechanical ordered
[2024-03-31 15:25] LABS: Troponin I < 0.012 ng/mL (0.000-0.034)
--- NOTE | 2024-03-31 16:05 | P.PNCA_ITS ---
Progress Note: A&P Assessment and Plan (1) Chest pain: Code(s): R07.9 - Chest pain, unspecified Status: Acute Assessment and Plan: Presents with chest pain which is predominantly atypical chest pain. However, patient's report of developing a pressure-like chest discomfort while shoveling snow raises concern for myocardial ischemia. His 1st troponin level is negative. His ECG shows sinus bradycardia with first-degree AV block and some ischemic changes with lateral T-wave inversions which are new compared to ECG from 2021. * I did order another troponin which was negative. EKG is though are concerning for ischemia especially given his story. Left ventricular hypertrophy can cause similar appearing EKGs and he may also have an athlete's heart. Regardless though symptoms started upon a strenuous run which is then worsened after snow shoveling. Other possibilities include coronary dissection but thankfully troponins are unremarkable. Unfortunately echocardiogram was not performed today. I am going to start him on aspirin 81 mg daily for now. I do think an ischemic evaluation is warranted prior to him being discharged. My initial recommendation is to proceed directly to coronary angiogram given his EKGs that are different from previous and his presenting symptoms. Other possibilities do include a stress test or even outpatient coronary artery CT scan. Will check a lipid panel. Obviously if the echo shows wall motion abnormalities or other pathology, angiogram would definitely recommended. (2) Syncope: Code(s): R55 - Syncope and collapse Status: Acute Assessment and Plan: Etiology is unclear. Patient has had several syncopal episodes over the years and had a Holter monitor in June of last year that was unrevealing for any arrhythmias/cause for syncope. * Needs EP evaluation as an outpatient Subjective Date/time seen: 03/31/24 16:05 Interval history: 43-year-old admitted for chest pain Date of service 03/31/2024: No chest pain at present. No syncope no palpitations Review of Systems Cardiovascular: Comments: No chest pain Respiratory: Comments: No shortness of breath Exam Narrative: Appears stated age Const: General: comfortable, no acute distress, alert and awake Orientation/consciousness: patient oriented x3 HENMT: Head: normal to inspection Eyes: General: appearance normal, both eyes and all related structures Sclera: sclerae normal Neck: Neck: normal visual inspection, supple and no JVD Carotids: normal carotid upstroke Chest: Other: No reproducible chest wall pain to palpation Resp: Effort & Inspection: normal respiratory effort Auscultation: clear to auscultation bilaterally Cardio: Rate: regular rate Rhythm: regular rhythm Heart sounds: S1 normal heart sound present, S2 normal heart sound present and no murmurs GI: Auscultation: normal bowel sounds Skin: General skin exam: normal color Neuro: General: patient oriented x3 Speech: normal speech Extrem: General: normal to inspection Psych: Appearance: grossly normal Mental Status: mental status grossly normal Objective Data Vital Signs Vital Signs: Vital Signs - 24 hr 03/30/24 16:32 03/30/24 18:00 03/30/24 20:00 Temperature 37.1 C Pulse Rate 50 L 48 L 45 L Respiratory Rate 18 Blood Pressure 126/73 Pulse Oximetry 98 Oxygen Delivery 03/30/24 20:12 03/30/24 22:00 03/30/24 22:05 Temperature 37.1 C Pulse Rate 47 L 51 L 47 L Respiratory Rate 18 18 Blood Pressure 118/72 Pulse Oximetry 98 98 Oxygen Delivery Room Air 03/30/24 23:20 03/30/24 23:50 03/31/24 00:00 Temperature 37.0 C Pulse Rate 46 L 46 L 45 L Respiratory Rate 18 18 Blood Pressure 105/58 L Pulse Oximetry 98 98 Oxygen Delivery Room Air 03/31/24 02:00 03/31/24 04:00 03/31/24 04:00 Temperature Pulse Rate 44 L 43 L 45 L Respiratory Rate 18 Blood Pressure Pulse Oximetry 98 Oxygen Delivery Room Air 03/31/24 05:52 03/31/24 06:00 03/31/24 07:25 Temperature 37.1 C 36.9 C Pulse Rate 43 L 44 L 53 L Respiratory Rate 18 14 Blood Pressure 110/64 125/71 Pulse Oximetry 98 98 Oxygen Delivery 03/31/24 08:00 03/31/24 11:33 03/31/24 12:00 Temperature 36.7 C Pulse Rate 52 L Respiratory Rate 12 Blood Pressure 130/67 Pulse Oximetry 100 Oxygen Delivery Room Air Room Air Intake/Output Intake/Output: Intake & Output 03/28/24 03/29/24 03/30/24 03/31/24 23:59 23:59 23:59 23:59 Intake Total 540 2520 Output Total 600 1970 Balance -60 550 Meds/Results Medications: Active Medications Generic Name Dose Route Start Last Admin Trade Name Pinoq PRN Reason Stop Dose Admin Acetaminophen 650 mg 03/30/24 12:19 03/31/24 06:09 Acetaminophen 325 Mg Tablet PO 650 mg Q4H PRN Administration Mild Pain (1-3) or Fever Hydrocodone Bitart/Acetaminophen 1 tab 03/30/24 12:19 Hydrocodone/Acetaminophen (*Crx) 5-325 Mg Tablet PO Q4H PRN Pain Rated 4-6 Enoxaparin Sodium 40 mg 03/31/24 09:00 03/31/24 09:54 Enoxaparin 40 Mg/0.4 Ml Syringe SUB-Q 40 mg DAILY LYNN Administration Ondansetron HCl 4 mg 03/30/24 12:19 Ondansetron Inj 4 Mg/2 Ml Vial IV PUSH Q4H PRN Nausea Perflutren Lipid Microsphere 0 ml 03/31/24 09:08 Perflutren Lipid Microspheres 1.5 Ml Vial Diluted To 10 Ml Total Volume IV PUSH 04/03/24 09:09 ONCE PRN adequate visualization Protocol Radiology Results: ITS Impressions Chest X-Ray 03/30/24 10:55 IMPRESSION: 1. No acute cardiopulmonary disease. Labs Labs: Laboratory Results - last 24 hr 03/30/24 03/31/24 03/31/24 14:30 04:32 14:59 WBC 6.8 RBC 5.18 Hgb 16.2 Hct 48.5 MCV 93.6 MCH 31.3 MCHC 33.4 RDW 13.0 Plt Count 267 MPV 10.5 H Sodium 139 Potassium 4.2 Chloride 104 Carbon Dioxide 29 Anion Gap 6 BUN 14 Creatinine 0.83 Estim Creat Clear Calc 109 Estimated GFR > 60 Glucose 99 Calcium 8.9 Troponin I < 0.012 LDL Cholesterol Direct 139
[2024-04-01] VITALS (19 sets, daily range): BP systolic 104–139; BP diastolic 61–78; PULSE 43–64; RESP 18–20; TEMP 36.7–37.2; O2SAT 99–100
[2024-04-01] MEDS: ENOXAPARIN 40 MG/0.4 ML SYRINGE SUB-Q (09:21)
[2024-04-01] MEDS: ASPIRIN 81 MG ENTERIC TABLET PO (09:21)
--- NOTE | 2024-04-01 11:01 | P.PNIM_ITS ---
Progress Note: A&P Assessment and Plan (1) Chest pain: Code(s): R07.9 - Chest pain, unspecified Status: Acute Assessment and Plan: Cardiology consulted Troponin negative Continue to trend 324 mg aspirin given Telemetry monitoring Cardiology suggested to keep the patient overnight for continuing monitoring due to abnormal EKG Echocardiogram pending (2) Patient denies significant medical history: Status: Acute Assessment and Plan: No home meds Plan 04/01/2024 Continued cardiac enzymes and monitor closely. Cardiology consult. Subjective Date/time seen: 04/01/24 11:01 Interval history: Patient was seen during the morning rounds today. No sob or chest pain. No abdominal pain or nausea. Review of Systems Review of Systems: 12 systems were reviewed and are negativ e except for as per HPI. Exam Narrative: General: well appearing, appears stated age. HEENT: normocephalic, atraumatic. Mucous membranes moist. EOMI, PERRLA, b ilateral sclera anicteric, no conjunctival injection. Neck supple without JVD, lymphadenopathy, or bruit. Respiratory: clear to ascultation bilaterally. No rales/rhonic/wheezes. Cardiovascular: Regular rate and rhythm, normal S1-S2 upon ascultation. No murmurs, rubs, or clicks. PMI is nondisplaced, capillary refill less than 3 second. Abdomen: Soft, round, no pulsatile masses, nondistended and nontender. No rebound, no guarding. No CVA tenderness, no hepatosplenomegaly. Bowel sounds present to all four quadrants. No high pitch or tinkling sounds, resonant to percussion. Extremities: No cyanosis, clubbing, or edema present. Pulses are palpable 2/2. Active ROM to all four extremities. Neuro: Alert and orientated x 4. PERRLA. Cranial nerves 2-12 intact without focal deficit. Skin: Warm, dry, and intact, without rash, erythema, or lesion. Psych: pleasant, cooperative, normal speech, normal affect, no hallucinations, no dysarthia Objective Data Vital Signs Vital Signs: Vital Signs - 24 hr 03/31/24 11:33 03/31/24 12:00 03/31/24 12:00 Temperature 36.7 C Pulse Rate 52 L 66 Respiratory Rate 12 Blood Pressure 130/67 Pulse Oximetry 100 Oxygen Delivery Room Air 03/31/24 14:00 03/31/24 15:17 03/31/24 16:00 Temperature 37.2 C Pulse Rate 61 55 L Respiratory Rate 16 Blood Pressure 134/78 Pulse Oximetry 100 Oxygen Delivery Room Air 03/31/24 16:00 03/31/24 18:00 03/31/24 20:00 Temperature Pulse Rate 64 53 L 51 L Respiratory Rate Blood Pressure Pulse Oximetry Oxygen Delivery 03/31/24 20:53 03/31/24 21:10 03/31/24 22:00 Temperature 37.1 C Pulse Rate 49 L 49 L 44 L Respiratory Rate 18 18 Blood Pressure 144/80 H Pulse Oximetry 99 99 Oxygen Delivery Room Air 04/01/24 00:00 04/01/24 00:00 04/01/24 01:00 Temperature 37.1 C Pulse Rate 43 L 50 L 43 L Respiratory Rate 18 18 Blood Pressure 136/74 Pulse Oximetry 99 99 Oxygen Delivery Room Air 04/01/24 02:00 04/01/24 03:42 04/01/24 03:55 Temperature 37.2 C Pulse Rate 44 L 45 L 45 L Respiratory Rate 18 18 Blood Pressure 104/61 Pulse Oximetry 100 100 Oxygen Delivery Room Air 04/01/24 04:00 04/01/24 05:09 04/01/24 08:09 Temperature 36.8 C Pulse Rate 44 L 49 L 53 L Respiratory Rate 18 Blood Pressure 122/78 Pulse Oximetry 100 Oxygen Delivery Intake/Output Intake/Output: Intake & Output 03/29/24 03/30/24 03/31/24 04/01/24 23:59 23:59 23:59 23:59 Intake Total 540 4410 790 Output Total 600 3670 780 Balance -60 740 10 Meds/Results Medications: Active Medications Generic Name Dose Route Start Last Admin Trade Name Freq PRN Reason Stop Dose Admin Acetaminophen 650 mg 03/30/24 12:19 03/31/24 18:51 Acetaminophen 325 Mg Tablet PO 650 mg Q4H PRN Administration Mild Pain (1-3) or Fever Hydrocodone Bitart/Acetaminophen 1 tab 03/30/24 12:19 Hydrocodone/Acetaminophen (*Crx) 5-325 Mg Tablet PO Q4H PRN Pain Rated 4-6 Aspirin 81 mg 04/01/24 09:00 04/01/24 09:21 Aspirin 81 Mg Enteric Tablet PO 81 mg QAM LYNN Administration Enoxaparin Sodium 40 mg 03/31/24 09:00 04/01/24 09:21 Enoxaparin 40 Mg/0.4 Ml Syringe SUB-Q 40 mg DAILY LYNN Administration Ondansetron HCl 4 mg 03/30/24 12:19 Ondansetron Inj 4 Mg/2 Ml Vial IV PUSH Q4H PRN Nausea Perflutren Lipid Microsphere 0 ml 03/31/24 09:08 Perflutren Lipid Microspheres 1.5 Ml Vial Diluted To 10 Ml Total Volume IV PUSH 04/03/24 09:09 ONCE PRN adequate visualization Protocol Radiology Results: ITS Impressions Chest X-Ray 03/30/24 10:55 IMPRESSION: 1. No acute cardiopulmonary disease. Labs Labs: Laboratory Results - last 24 hr 03/31/24 14:59 Troponin I < 0.012 Quality VTE Prophylaxis VTE prophylaxis: mechanical ordered
--- NOTE | 2024-04-01 13:32 | P.PNCA_ITS ---
Progress Note: A&P Assessment and Plan (1) Chest pain: Code(s): R07.9 - Chest pain, unspecified Status: Acute Assessment and Plan: Presents with chest pain which is predominantly atypical chest pain. However, patient's report of developing a pressure-like chest discomfort while shoveling snow raises concern for myocardial ischemia. His 1st troponin level is negative. His ECG shows sinus bradycardia with first-degree AV block and some ischemic changes with lateral T-wave inversions which are new compared to ECG from 2021. * I did order another troponin which was negative. EKG is though are concerning for ischemia especially given his story. Left ventricular hypertrophy can cause similar appearing EKGs and he may also have an athlete's heart. Regardless though symptoms started upon a strenuous run which is then worsened after snow shoveling. Other possibilities include coronary dissection but thankfully troponins are unremarkable. Continue aspirin. Echo could not be reported but I did look at it and his LV function is normal. RV may be enlarged and needs outpatient cardiac MRI specially given his history of syncope. Regardless though for his chest pain and abnormal ECG, I have disc ussed stress testing versus coronary angiogram. Preference is given the nature of his chest pain, abnormal ECGs to proceed with a coronary angiogram. Will keep him NPO after midnight for catheterization tomorrow (2) Syncope: Code(s): R55 - Syncope and collapse Status: Acute Assessment and Plan: Etiology is unclear. Patient has had several syncopal episodes over the years and had a Holter monitor in June of last year that was unrevealing for any arrhythmias/cause for syncope. * Needs EP evaluation as an outpatient Subjective Date/time seen: 04/01/24 13:32 Interval history: 43-year-old admitted for chest pain Date of service 04/01/2024: No chest pain at present. No syncope no palpitations Review of Systems Review of Systems: All systems reviewed & are unremarkable except as noted in HPI and below Constitutional: Constitutional: Reports no additional constitutional complaints Eyes: Eyes: Denies blurry vision ENT: Reports system reviewed and no additional complaints, except as documented Cardiovascular: Cardiovascular: Denies chest pain Comments: No chest pain Respiratory: Respiratory: Denies dyspnea Comments: No shortness of breath Exam Narrative: Appears stated age Const: General: comfortable, no acute distress, alert and awake Orientation/consciousness: patient oriented x3 HENMT: Head: normal to inspection Eyes: General: appearance normal, both eyes and all related structures Sclera: sclerae normal Neck: Neck: normal visual inspection, supple and no JVD Carotids: normal carotid upstroke Chest: Other: No reproducible chest wall pain to palpation Resp: Effort & Inspection: normal respiratory effort Auscultation: clear to auscultation bilaterally Cardio: Rate: regular rate Rhythm: regular rhythm Heart sounds: S1 normal heart sound present, S2 normal heart sound present and no murmurs GI: Auscultation: normal bowel sounds Skin: General skin exam: normal color Neuro: General: patient oriented x3 Speech: normal speech Extrem: General: normal to inspection Psych: Appearance: grossly normal Mental Status: mental status grossly normal Objective Data Vital Signs Vital Signs: Vital Signs - 24 hr 03/31/24 14:00 03/31/24 15:17 03/31/24 16:00 Temperature 37.2 C Pulse Rate 61 55 L Respiratory Rate 16 Blood Pressure 134/78 Pulse Oximetry 100 Oxygen Delivery Room Air 03/31/24 16:00 03/31/24 18:00 03/31/24 20:00 Temperature Pulse Rate 64 53 L 51 L Respiratory Rate Blood Pressure Pulse Oximetry Oxygen Delivery 03/31/24 20:53 03/31/24 21:10 03/31/24 22:00 Temperature 37.1 C Pulse Rate 49 L 49 L 44 L Respiratory Rate 18 18 Blood Pressure 144/80 H Pulse Oximetry 99 99 Oxygen Delivery Room Air 04/01/24 00:00 04/01/24 00:00 04/01/24 01:00 Temperature 37.1 C Pulse Rate 43 L 50 L 43 L Respiratory Rate 18 18 Blood Pressure 136/74 Pulse Oximetry 99 99 Oxygen Delivery Room Air 04/01/24 02:00 04/01/24 03:42 04/01/24 03:55 Temperature 37.2 C Pulse Rate 44 L 45 L 45 L Respiratory Rate 18 18 Blood Pressure 104/61 Pulse Oximetry 100 100 Oxygen Delivery Room Air 04/01/24 04:00 04/01/24 05:09 04/01/24 08:00 Temperature Pulse Rate 44 L 49 L 59 L Respiratory Rate Blood Pressure Pulse Oximetry Oxygen Delivery Room Air 04/01/24 08:00 04/01/24 08:09 04/01/24 10:00 Temperature 36.8 C Pulse Rate 59 L 53 L 59 L Respiratory Rate 18 Blood Pressure 122/78 Pulse Oximetry 100 Oxygen Delivery 04/01/24 12:23 Temperature 36.7 C Pulse Rate 64 Respiratory Rate 18 Blood Pressure 139/68 Pulse Oximetry 100 Oxygen Delivery Intake/Output Intake/Output: Intake & Output 03/29/24 03/30/24 03/31/24 04/01/24 23:59 23:59 23:59 23:59 Intake Total 540 4410 1030 Output Total 600 3670 780 Balance -60 740 250 Meds/Results Medications: Active Medications Generic Name Dose Route Start Last Admin Trade Name Freq PRN Reason Stop Dose Admin Acetaminophen 650 mg 03/30/24 12:19 03/31/24 18:51 Acetaminophen 325 Mg Tablet PO 650 mg Q4H PRN Administration Mild Pain (1-3) or Fever Hydrocodone Bitart/Acetaminophen 1 tab 03/30/24 12:19 Hydrocodone/Acetaminophen (*Crx) 5-325 Mg Tablet PO Q4H PRN Pain Rated 4-6 Aspirin 81 mg 04/01/24 09:00 04/01/24 09:21 Aspirin 81 Mg Enteric Tablet PO 81 mg QAM LYNN Administration Enoxaparin Sodium 40 mg 03/31/24 09:00 04/01/24 09:21 Enoxaparin 40 Mg/0.4 Ml Syringe SUB-Q 40 mg DAILY LYNN Administration Ondansetron HCl 4 mg 03/30/24 12:19 Ondansetron Inj 4 Mg/2 Ml Vial IV PUSH Q4H PRN Nausea Perflutren Lipid Microsphere 0 ml 03/31/24 09:08 Perflutren Lipid Microspheres 1.5 Ml Vial Diluted To 10 Ml Total Volume IV PUSH 04/03/24 09:09 ONCE PRN adequate visualization Protocol Radiology Results: ITS Impressions Chest X-Ray 03/30/24 10:55 IMPRESSION: 1. No acute cardiopulmonary disease. Labs Labs: Laboratory Results - last 24 hr 03/31/24 14:59 Troponin I < 0.012
[2024-04-02] VITALS (22 sets, daily range): BP systolic 100–139; BP diastolic 60–97; PULSE 41–60; RESP 14–20; TEMP 36.4–36.7; O2SAT 96–100
[2024-04-02] MEDS: ASPIRIN 81 MG ENTERIC TABLET PO (08:35)
--- NOTE | 2024-04-02 08:40 | WPDHPUPDATE1 ---
History and Physical Update Update Date/Time: 04/02/24 08:40 History and Physical has been reviewed, including an updated exam of the patient. There are NO changes in the patient's condition. Risks, benefits, and alternatives have been discussed and questions answered. Patient agrees to proceed with procedure.
--- NOTE | 2024-04-02 08:40 | WPDMODSED ---
Moderate Sedation Note-Pt Data Patient Data Diagnosis: Chest pain Present Complaint: Chest pain Procedure to be performed/Plan: Coronary angiography, left heart cath, +/- PCI Allergies Allergy/AdvReac Type Severity Reaction Status Date / Time No Known Allergies Allergy Verified 03/30/24 08:29 Home Medications ?Medication ?Instructions ?Recorded ?Confirmed ?Type No Home Medications 03/30/24 03/30/24 History Current Medications: Active Medications Acetaminophen (Acetaminophen 325 Mg Tablet) 650 mg PO Q4H PRN PRN Reason: Mild Pain (1-3) or Fever Last Admin: 03/31/24 18:51 Dose: 650 mg Hydrocodone Bitart/Acetaminophen (Hydrocodone/Acetaminophen (*Crx) 5-325 Mg Tablet) 1 tab PO Q4H PRN PRN Reason: Pain Rated 4-6 Aspirin (Aspirin 81 Mg Enteric Tablet) 81 mg PO QAM [facility] Last Admin: 04/02/24 08:35 Dose: 81 mg Enoxaparin Sodium (Enoxaparin 40 Mg/0.4 Ml Syringe) 40 mg SUB-Q DAILY [facility] Last Admin: 04/01/24 09:21 Dose: 40 mg Ondansetron HCl (Ondansetron Inj 4 Mg/2 Ml Vial) 4 mg IV PUSH Q4H PRN PRN Reason: Nausea Perflutren Lipid Microsphere (Perflutren Lipid Microspheres 1.5 Ml Vial Diluted To 10 Ml Total Volume) 0 ml IV PUSH ONCE PRN; Protocol PRN Reason: adequate visualization Stop: 04/03/24 09:09 Sedation/Anesthesia: No previous sedation/anesthesia problems (including family history). [facility] Past Medical History Medical History Patient denies significant medical history Surgical History Surgical History [place] teeth removed Family History Family History Mother Pancreatic cancer Diverticulitis Liver cancer Father Hypertension Grandparent Parkinson disease Cerebrovascular accident Carcinoma of colon Social History Social History Smoking status: Never smoker Second hand tobacco smoke exposure: No Alcohol intake: never Substance use: never Do You Feel Safe in your Home?: Yes Lack of Transportation: No Lack of Food: Never True Current Housing: I Have Housing Concerned About Future Housing: No Difficulty Paying Gas/Electric Bills: No Difficulty Paying for Meds: No Currently Unemployed: No Education: Master's Degree or Higher Difficulty w/ Childcare or Family Care: No Gender identity (if verbalized by the patient): Male Spiritual care concerns: No Mod Sed Physical Exam Physical Exam Pre Procedural Exam: Normal: Appearance, Lungs, Heart Rate, Heart Rhythm, Neuro Exam, Extremities and Skin Hours since solid foods: 12 Hours since liquid intake: 8 Mallampati Classification: class II Internal Medicine - PN: Obj Da Vital Signs Vital Signs: Vital Signs - 24 hr 04/01/24 10:00 04/01/24 12:00 04/01/24 12:00 Temperature Pulse Rate 59 L 57 L 59 L Respiratory Rate 18 Blood Pressure Pulse Oximetry Oxygen Delivery Room Air 04/01/24 12:23 04/01/24 14:00 04/01/24 16:00 Temperature 36.7 C Pulse Rate 64 57 L Respiratory Rate 18 Blood Pressure 139/68 Pulse Oximetry 100 Oxygen Delivery Room Air 04/01/24 16:00 04/01/24 16:21 04/01/24 18:00 Temperature 36.8 C Pulse Rate 46 L 50 L 54 L Respiratory Rate 18 Blood Pressure 130/69 Pulse Oximetry 99 Oxygen Delivery 04/01/24 19:59 04/01/24 20:00 04/01/24 20:00 Temperature 36.8 C Pulse Rate 57 L 57 L 59 L Respiratory Rate 18 20 Blood Pressure 139/65 Pulse Oximetry 99 100 Oxygen Delivery Room Air 04/01/24 21:35 04/02/24 00:00 04/02/24 00:00 Temperature Pulse Rate 43 L 48 L 48 L Respiratory Rate 20 Blood Pressure Pulse Oximetry 100 Oxygen Delivery Room Air 04/02/24 00:00 04/02/24 02:00 04/02/24 03:56 Temperature 36.7 C Pulse Rate 52 L 46 L 46 L Respiratory Rate 16 16 Blood Pressure 108/60 Pulse Oximetry 98 98 Oxygen Delivery Room Air 04/02/24 03:56 04/02/24 05:00 04/02/24 06:00 Temperature 36.4 C Pulse Rate 44 L 41 L 45 L Respiratory Rate 16 Blood Pressure 119/69 Pulse Oximetry 100 Oxygen Delivery 04/02/24 07:39 Temperature 36.6 C Pulse Rate 48 L Respiratory Rate 18 Blood Pressure 123/71 Pulse Oximetry 99 Oxygen Delivery Intake/Output Intake/Output: Intake & Output 03/30/24 03/31/24 04/01/24 04/02/24 23:59 23:59 23:59 23:59 Intake Total 540 4410 2020 240 Output Total 600 3670 2680 925 Balance -60 506 -630 -611 Meds/Results Medications: Active Medications Generic Name Dose Route Start Last Admin Trade Name Freq PRN Reason Stop Dose Admin Acetaminophen 650 mg 03/30/24 12:19 03/31/24 18:51 Acetaminophen 325 Mg Tablet PO 650 mg Q4H PRN Administration Mild Pain (1-3) or Fever Hydrocodone Bitart/Acetaminophen 1 tab 03/30/24 12:19 Hydrocodone/Acetaminophen (*Crx) 5-325 Mg Tablet PO Q4H PRN Pain Rated 4-6 Aspirin 81 mg 04/01/24 09:00 04/02/24 08:35 Aspirin 81 Mg Enteric Tablet PO 81 mg QAM LYNN Administration Enoxaparin Sodium 40 mg 03/31/24 09:00 04/01/24 09:21 Enoxaparin 40 Mg/0.4 Ml Syringe SUB-Q 40 mg DAILY LYNN Administration Ondansetron HCl 4 mg 03/30/24 12:19 Ondansetron Inj 4 Mg/2 Ml Vial IV PUSH Q4H PRN Nausea Perflutren Lipid Microsphere 0 ml 03/31/24 09:08 Perflutren Lipid Microspheres 1.5 Ml Vial Diluted To 10 Ml Total Volume IV PUSH 04/03/24 09:09 ONCE PRN adequate visualization Protocol Radiology Results: ITS Impressions Chest X-Ray 03/30/24 10:55 IMPRESSION: 1. No acute cardiopulmonary disease. Labs 03/31/24 04:32 03/31/24 04:32 ASA Classification/Sedation ASA Classification/Sedation ASA Class: III Emergent: No Risks: Risks, benefits and alternatives explained and patient/family accepted plan for sedation. Patient re-evaluated immediately prior to sedation.
--- NOTE | 2024-04-02 08:41 | P.PCNCC_ITS ---
Cardiac Cath Procedure Note Date of procedure:: 04/02/24 Performing physician:: CATHETERIZATION LABORATORY REPORT Procedure Date: 04/02/2024 Humanities Division Chair: Stephany Rodriguez M.D., [facility]? Referring Physician: Campbell Metzger M.D. ? Anesthesia: Versed and Fentanyl were ordered and given in my presence at 08:55, procedure ended at 09:15. Supervision of nurse monitored moderate sedation with Versed and Fentanyl was provided for 20 minutes. Total of Versed 1mg and Fentanyl 50mcg were administered by the Body Maker RN Carmella Webster. Pre-op Diagnosis: Coronary artery disease Post-op Diagnosis: No obstructive coronary artery disease Procedure(s): 1. Moderate sedation 2. Ultrasound-guided access of the right radial artery 3. Coronary angiography Access Site: Right radial artery Brief History and Clinical Indications: Patient is a 43 year old male referred for [facility] for chest pain. All risks, benefits and alternatives to left heart catheterization with or without percutaneous coronary intervention was discussed at length with the patient. Risk of complications including but not limited to bleeding, infection, arrhythmia, stroke, worsening kidney function, blood loss, groin hematoma, limb loss, emergency coronary artery bypass grafting, and even were discussed with the patient and all questions were answered. The patient understood and wished to proceed. Time out called, patient name, date of , medical record number, allergies, procedure performed, identify Humanities Division Chair, patient and staff member concurred with accurate data, procedure carried on. Findings: LEFT HEART CATHETERIZATION FINDINGS: 1. Left main: The left main coronary artery is widely patent without any significant obstructive disease. 2. Left anterior descending: The LAD and the diagonal branches have luminal irregularities without any significant obstructive angiographic disease. 3. Ramus: Luminal irregularities. 4. Left circumflex: The left circumflex artery has luminal irregularities wit hout any significant obstructive angiographic disease. 5. Right coronary artery: The RCA has luminal irregularities without any significant obstructive angiographic disease. The RCA is the dominant vessel. Slow flow noted on initial angiogram of the RCA. Description of Procedure: Informed consent signed and placed in the chart. Patient transferred to specialist employee labor relations room. Prepped and draped in usual sterile fashion. 2% lidocaine injected subcutaneously in right wrist area. 22-gauge venipuncture catheter used to access the right radial artery under ultrasound guidance. 6-FR slender sheath placed in right radial artery. Nitroglycerine and Verapamil were given intraarterial through the sheath. Versacore wire advanced under fluoroscopy 5F Tig 4 diagnostic catheter engaged Left Main Coronary Artery. 5F FR 4 diagnostic catheter engaged Right Coronary Artery Multiple orthogonal angiogram obtained and reviewed Hemostasis was achieved by application of TR band. Disposition: Floor Plan: The patient will be monitored in the recovery area. Continue aggressive medical therapy and risk factor modification. Patient can be discharged home later this afternoon after post-cath bed rest is complete. Will arrange outpatient follow up with Dr. Metzger. ? Stephany Rodriguez M.D. Interventional Cardiology
--- NOTE | 2024-04-02 09:05 | P.PNIM_ITS ---
Progress Note: A&P Assessment and Plan (1) Chest pain: Code(s): R07.9 - Chest pain, unspecified Status: Acute Plan 43-year-old male denies significant medical history presents the hospital with acute chest pain. Patient states that he has been having intermittent substernal and left-sided chest pain for about a week. He had traveled to [place] to visit family and developed chest pain after going for a run. States that the chest pain came and went intermittently when he was resting. While at the hospital talking to the doctor about the possibility that it may of had a heart attack patient states that he became very lightheaded, extremely diaphoretic, felt like he was going to have a bowel movement and was worried he was going to pass out however he did not pass out or lose consciousness. Chest pain: Code(s): R07.9 - Chest pain, unspecified Status: Acute Assessment and Plan: Cardiology consulted Troponin negative Continue to trend 324 mg aspirin given Telemetry monitoring: No ischemia no significant arrhythmia Echocardiogram 1. Complete two-dimensional, color flow and Doppler transthoracic echocardiogram is performed. 2. Left ventricular systolic function is normal, estimated at 60-65%. 3. There is mildly increased left ventricular wall thickness. 4. The left ventricular diastolic function is normal. 5. There is mild mitral valve regurgitation. 6. There is mild tricuspid valve regurgitation. 7. No pulmonary hypertension, estimated pulmonary arterial systolic pressure is 26 mmHg. 8. There is mild pulmonic regurgitation. Cardiac catheterization shows no coronary artery stenosis Hyperlipidemia Total cholesterol 223, LDL 139 Start Lipitor 40 mg daily p.o. History of syncope Follow-up with maintainer plant in the office for further up, plans EP study in the office Subjective Date/time seen: 04/02/24 09:05 Interval history: I saw examined patient today. Patient denies chest pain, palpitation, abdomen pain nausea vomiting diarrhea. Patient underwent cardiac catheterization that showed patent arteries. Procedure is not complicated Patient afebrile blood pressure stable Exam Narrative: GENERAL: Pleasant, in no acute distress. Well-nourished. - EYES: EOMI. Anicteric. - HENT: Moist mucous membranes. - LUNGS: Clear to auscultation bilateral ly, no wheezing, rhonchi, or rales. - CARDIOVASCULAR: Regular rate and rhyth m. No murmur. No JVD. - ABDOMEN: Soft, non-tender and non-dist ended. No palpable masses. - EXTREMITIES: No edema. Peripheral puls es 2+. Non-tender. - NEUROLOGIC: No focal neurological defi cits. CN II-XII grossly intact. - PSYCHIATRIC: Awake, Alert and oriented x 3. Appropriate mood and affect. - SKIN: No rashes or lesions. Warm. - LYMPH: No cervical lymphadenopathy. Objective Data Vital Signs Vital Signs: Vital Signs - 24 hr 04/01/24 10:00 04/01/24 12:00 04/01/24 12:00 Temperature Pulse Rate 59 L 57 L 59 L Respiratory Rate 18 Blood Pressure Pulse Oximetry Oxygen Delivery Room Air 04/01/24 12:23 04/01/24 14:00 04/01/24 16:00 Temperature 98.1 F Pulse Rate 64 57 L Respiratory Rate 18 Blood Pressure 139/68 Pulse Oximetry 100 Oxygen Delivery Room Air 04/01/24 16:00 04/01/24 16:21 04/01/24 18:00 Temperature 98.2 F Pulse Rate 46 L 50 L 54 L Respiratory Rate 18 Blood Pressure 130/69 Pulse Oximetry 99 Oxygen Delivery 04/01/24 19:59 04/01/24 20:00 04/01/24 20:00 Temperature 98.3 F Pulse Rate 57 L 57 L 59 L Respiratory Rate 18 20 Blood Pressure 139/65 Pulse Oximetry 99 100 Oxygen Delivery Room Air 04/01/24 21:35 04/02/24 00:00 04/02/24 00:00 Temperature Pulse Rate 43 L 48 L 48 L Respiratory Rate 20 Blood Pressure Pulse Oximetry 100 Oxygen Delivery Room Air 04/02/24 00:00 04/02/24 02:00 04/02/24 03:56 Temperature 98.0 F Pulse Rate 52 L 46 L 46 L Respiratory Rate 16 16 Blood Pressure 108/60 Pulse Oximetry 98 98 Oxygen Delivery Room Air 04/02/24 03:56 04/02/24 05:00 04/02/24 06:00 Temperature 97.6 F Pulse Rate 44 L 41 L 45 L Respiratory Rate 16 Blood Pressure 119/69 Pulse Oximetry 100 Oxygen Delivery 04/02/24 07:39 Temperature 97.9 F Pulse Rate 48 L Respiratory Rate 18 Blood Pressure 123/71 Pulse Oximetry 99 Oxygen Delivery Intake/Output Intake/Output: Intake & Output 03/30/24 03/31/24 04/01/2425 23:59 23:59 23:59 23:59 Intake Total 540 4410 2019 240 Output Total 600 4960 2680 925 Balance -60 192 -706 -709 Meds/Results Medications: Active Medications Generic Name Dose Route Start Last Admin Trade Name Freq PRN Reason Stop Dose Admin Acetaminophen 650 mg 03/30/24 12:19 03/31/24 18:51 Acetaminophen 325 Mg Tablet PO 650 mg Q4H PRN Administration Mild Pain (1-3) or Fever Hydrocodone Bitart/Acetaminophen 1 tab 03/30/24 12:19 Hydrocodone/Acetaminophen (*Crx) 5-325 Mg Tablet PO Q4H PRN Pain Rated 4-6 Aspirin 81 mg 04/01/24 09:00 04/02/24 08:35 Aspirin 81 Mg Enteric Tablet PO 81 mg QAM LYNN Administration Enoxaparin Sodium 40 mg 03/31/24 09:00 04/01/24 09:21 Enoxaparin 40 Mg/0.4 Ml Syringe SUB-Q 40 mg DAILY LYNN Administration Ondansetron HCl 4 mg 03/30/24 12:19 Ondansetron Inj 4 Mg/2 Ml Vial IV PUSH Q4H PRN Nausea Perflutren Lipid Microsphere 0 ml 03/31/24 09:08 Perflutren Lipid Microspheres 1.5 Ml Vial Diluted To 10 Ml Total Volume IV PUSH 04/03/24 09:09 ONCE PRN adequate visualization Protocol Radiology Results: ITS Impressions Chest X-Ray 03/30/24 10:55 IMPRESSION: 1. No acute cardiopulmonary disease.
--- NOTE | 2024-04-02 09:57 | ECG_ITS ---
Test Date: 2024-04-02 10:12:46 Measurements Intervals [place] Rate: 46 P: 57 SD: 219 QRS: -12 QRSD: 106 T: -18 QT: 418 QTc: 368 Interpretive Statements SINUS BRADYCARDIA WITH FIRST DEGREE AV BLOCK INCOMPLETE RIGHT BUNDLE BRANCH BLOCK [90+ ms QRS DURATION, TERMINAL R IN V1/V2, 40+ ms S IN I/aVL/V4/V5/V6] MODERATE VOLTAGE CRITERIA FOR LVH, CONSIDER NORMAL VARIANT [MEETS CRITERIA IN ONE OF: R(aVL), S(V1), R(V5), R(V5/V6)+S(V1)] NONSPECIFIC T-WAVE ABNORMALITY Compared to ECG 03/30/2024 10:37:07 Possible ischemia no longer present T-wave abnormality still present Electronically Signed On 04-02-2024 13:10:11 PAPER CUTTER OPERATOR by Sree Azar M.D.
[2024-04-02] MEDS: SODIUM CHLORIDE 0.9% IV 1,000 ML 125 ML IV CONT (11:20)
--- NOTE | 2024-04-02 14:18 | P.DS_ITS ---
DS: Admitting Diagnosis Discharge Date 04/02/24 Admitting Diagnosis (1) Chest pain: Code(s): R07.9 - Chest pain, unspecified Status: Acute DS: Discharge Diagnosis Discharge Diagnosis (1) Chest pain: Code(s): R07.9 - Chest pain, unspecified Status: Acute DS: Summary Hospital Course Hospital Course: 43-year-old male denies significant medical history presents the hospital with acute chest pain. Patient states that he has been having intermittent substernal and left-sided chest pain for about a week. He had traveled to [place] to visit family and developed chest pain after going for a run. States that the chest pain came and went intermittently when he was resting. While at the hospital talking to the doctor about the possibility that it may of had a heart attack patient states that he became very lightheaded, extremely diaphoretic, felt like he was going to have a bowel movement and was worried he was going to pass out however he did not pass out or lose consciousness. The following med issues have been addressed during hospitalization Chest pain: Code(s): R07.9 - Chest pain, unspecified Status: Acute Assessment and Plan: Cardiology consulted Troponin negative EKG shows sinus rhythm, but has T-wave inversion lead 3 and AVF 324 mg aspirin given Telemetry monitoring: No ischemia no significant arrhythmia Echocardiogram 1. Complete two-dimensional, color flow and Doppler transthoracic echocardiogram is performed. 2. Left ventricular systolic function is normal, estimated at 60-65%. 3. There is mildly increased left ventricular wall thickness. 4. The left ventricular diastolic function is normal. 5. There is mild mitral valve regurgitation. 6. There is mild tricuspid valve regurgitation. 7. No pulmonary hypertension, estimated pulmonary arterial systolic pressure is 26 mmHg. 8. There is mild pulmonic regurgitation. Cardiac catheterization shows no coronary artery stenosis Hyperlipidemia Total cholesterol 223, LDL 139 Start Lipitor 40 mg daily p.o. History of syncope Follow-up with mill roll operator in the office for further up, plans EP study in the office Time Spent with Patient Time attestation: Total time spent providing and/or coordinating discharge services: Exam Narrative: GENERAL: Pleasant, in no acute distress. Well-nourished. - EYES: EOMI. Anicteric. - HENT: Moist mucous membranes. - LUNGS: Clear to auscultation bilateral ly, no wheezing, rhonchi, or rales. - CARDIOVASCULAR: Regular rate and rhyth m. No murmur. No JVD. - ABDOMEN: Soft, non-tender and non-dist ended. No palpable masses. - EXTREMITIES: No edema. Peripheral puls es 2+. Non-tender. - NEUROLOGIC: No focal neurological defi cits. CN II-XII grossly intact. - PSYCHIATRIC: Awake, Alert and oriented x 3. Appropriate mood and affect. - SKIN: No rashes or lesions. Warm. - LYMPH: No cervical lymphadenopathy. Discharge Plan Discharge Attending physician on discharge: [place] Consulting providers: Stephany Rodriguez Discharging Clinician: [place] Viera Anticipated Discharge Date/Time: 04/02/24 14:19 Patient Disposition: Home, Self-Care Activity: as tolerated Diet: heart healthy Discharge Instructions: [facility] [address] [place] [id number] DISCHARGE INSTRUCTIONS - POST RADIAL CATH Activity 1. No driving for 24 hours. 2. No lifting more than 5 lb with affected arm for 1 week. 3. May shower ( tomorrow) but no excessive soaking of affected hand/wrist (such as washing dishes), swimming pool or hot tub for 5 days. Wound Care 1. May remove arm board in the morning. 2. May remove gauze dressing in the morning and put Band-Aid over affected radial site. Keep site covered for 3 days. 3. Observe for redness, drainage, swelling or bleeding. Medications DO NOT STOP YOUR MEDICATIONS ONLY YOUR PRO[employer] INTERNS[employer]IP CAN STOP THE FOLLOWING MEDICATIONS - PLEASE CALL THE OFFICE WITH QUESTIONS. *Aspirin *For any other questions please call the office at [phone]. Office hours are 8AM 4:30PM Tuesday through Tuesday. Patient Instructions: Antibiotic Form, Moderate Sedation (DC), After Radial Heart Catheterization (GEN) Patient Language: [place] Stand Alone Forms: General Discharge Information Follow-up/Referrals: Stephany Rodriguez MD [Physician] - (see mill roll operator at a scheduled appointment ) Bola Marquis DO [Primary Care Provider] - (see PCP in one week) Discharge Medications: New aspirin 81 mg Tablet,Delayed Release (Dr/Ec) 81 mg PO QAM Qty: 30 0RF atorvastatin [Lipitor] 40 mg tablet 40 mg PO DAILY Qty: 30 0RF Date of admission: 03/30/24 12:19 Primary Care Provider: Bola aMrquis Admitting Provider: Bal Christie Attending physician on admission: Bal Christie Condition: Stable
== END 2024-04-02 15:37 | disposition home or self-care (01) ==
LOC: ANHED 10:54 → ANHIMU 19:44
PROVIDERS: Internal Medicine; Internal Medicine Cardiovascular Disease; Nurse Practitioner Gerontology; Physician Assistant; Admitting Provider Internal Medicine; Emergency Provider Emergency Medicine; PCP Internal Medicine; Visit Provider Hospitalist
PROC: (CPT 93454; principal; 2024-04-02 12:00)
DX: R07.9 Chest pain, unspecified (principal); R55 Syncope and collapse; E78.5 Hyperlipidemia, unspecified
CPT/HCPCS: 36415; 71045; 80048; 80053; 80061; 83880; 84484; 85025; 85027; 85610; 85730; 93005; 93306; 93454; 96372; 99285; A9270; C1769; C1887; C1894; G0378; J1644; J1650; J2003; J2250; J2305; J3010; J7030; J7040

== ENCOUNTER 2024-12-24 08:22 | Emergency (ER) | payer OTHER, SELFPAY ==
--- NOTE | ~2024-12-24 | XR_ITS ---
XR lumbar spine 2-3V Indication: low back pain x 2 days, no inj, no surgery, Comparison: None Findings: The vertebral heights are intact. No fracture or subluxation. The disc heights are intact. Soft tissues unremarkable Impression: No acute abnormality. Reviewed, dictated and finalized at location P. Impression: No acute abnormality.
--- NOTE | 2024-12-24 08:26 | ED.BACK ---
HPI - Back Pain/Injury General Chief Complaint: Back Pain/Injury Stated Complaint: n/a Source: patient and RN notes reviewed Mode of arrival: ambulatory Limitations: no limitations History of Present Illness HPI Narrative: Patient is a 44-year-old male who presents to the [facility] with complaints of low back pain that radiates intermittently down his left leg. He states the pain worsened yesterday. He has had some soreness to his low back for the past week and a half. He denies recent injury. Reports history of chronic low back pain. Denies numbness. Denies dysfunction of bladder or bowel. Denies urinary symptoms. Related Data Allergies Allergy/AdvReac Type Severity Reaction Status Date / Time No Known Allergies Allergy Verified 12/24/24 08:28 Review of Systems Review of Systems: CONSTITUTIONAL: Denies fever, chills, or sweats. EYES: Denies visual changes, redness, or discharge. ENT: Denies otalgia and sore throat CARDIOVASCULAR: Denies chest pain, palpitations, or edema. RESPIRATORY: Denies cough or dyspnea. GASTROINTESTINAL: Denies abdominal pain, nausea, vomiting, or diarrhea. GENITOURINARY: Denies dysuria or hematuria. SKIN: Denies rash or itching. MUSCULOSKELETAL: Reports back pain NEUROLOGIC: Denies headache, numbness, or weakness. Pertinent positives per HPI. [facility] Past Medical History Medical History Patient denies significant medical history Surgical History Surgical History [place] teeth removed Family History Family History Mother Pancreatic cancer Diverticulitis Liver cancer Father Hypertension Grandparent Parkinson disease Cerebrovascular accident Carcinoma of colon Social History Social History Smoking status: Never smoker Second hand tobacco smoke exposure: No Alcohol intake: never Substance use: never Do You Feel Safe in your Home?: Yes Lack of Transportation: No Lack of Food: Never True Current Housing: I Have Housing Concerned About Future Housing: No Difficulty Paying Gas/Electric Bills: No Difficulty Paying for Meds: No Currently Unemployed: No Education: Master's Degree or Higher Difficulty w/ Childcare or Family Care: No Gender identity (if verbalized by the patient): Male Spiritual care concerns: No Comments At the time of my signature, I reviewed and agree with the nursing past medical, surgical, social, and family history. There is no relevant family history pertinent to the patient complaint. Exam Narrative: GENERAL: This is a well-nourished, well-developed patient, in no apparent distress. HEAD: normocephalic, atraumatic. EYES: PERRL. Sclera clear/white. Vision is grossly intact. EARS: External ears normal, auditory canals clear and without drainage, TMs normal without perforation. Hearing grossly intact. NOSE: External nose normal with no obvious nasal discharge, nares without redness, no rhinorrhea. THROAT: Mucous membranes moist, posterior pharynx clear. NECK: Neck supple, non-tender without lymphadenopathy, masses or thyromegaly. CARDIOVASCULAR: Regular rate and rhythm without murmurs, gallops, or rubs. RESPIRATORY: Clear to auscultation. Breath sounds equal bilaterally. No wheezes, rales, or rhonchi. GASTROINTESTINAL: Abdomen soft, non-tender, nondistended. Bowel sounds are active. No hepato-splenomegaly, or palpable masses. No guarding. SKIN: warm, intact with no suspicious lesions or rash, good texture and turgor. NEURO: awake, alert, and oriented to person, place and time. There were no obvious focal neurologic abnormalities. EXTREMITIES: No clubbing, cyanosis, or edema. No joint tenderness, effusion, or edema noted. BACK: Tenderness in the paraspinous muscles in the lumbar area. No tenderness over the spinous processes of the lumbar vertebrae. LEGS: Normal strength including dorsi-flexion and plantar flexion of the feet. Negative bilateral straight leg raising, normal and symmetrical knee and ankle reflexes. Course Course Level of Care: Express Care Visit Vital Signs Vital signs: Vital Signs Temperature 97.8 F 12/24/24 08:29 Pulse Rate 60 12/24/24 08:29 Respiratory Rate 16 12/24/24 08:29 Blood Pressure 128/80 12/24/24 08:29 Pulse Oximetry 100 12/24/24 08:29 Temperature 97.8 F 12/24/24 08:29 Pulse Rate 60 12/24/24 08:29 Respiratory Rate 16 12/24/24 08:29 Blood Pressure 128/80 12/24/24 08:29 Pulse Oximetry 100 12/24/24 08:29 Reviewed MDM - Back Pain/Injury MDM Narrative Medical decision making narrative: Use the RICE method at home. May take ibuprofen and/or Tylenol if needed. If symptoms persist in 1 week after conservative treatment, follow-up with specialist. Differential Diagnosis Differential diagnosis: Likely lumbar radiculopathy, sciatica and strain of lumbar region Imaging Data Attestation: I personally reviewed and interpreted this imaging study as follows: Radiologist's impression: [facility] [address] [facility] [place] [address] XRay Report Signed Patient: Stephan Andre : 1980 MR#: [id number] Age: 44 Acct:[id number] Loc: [facility] ADM Date: 12/24/[address]: Ordering Physician: Maryanne Franco APRN Date of Service: 12/24/24 Procedure(s): XR lumbar spine 2-3V Accession Number(s): [id number] cc: Maryanne Franco APRN; Bola Marquis DO~ XR lumbar spine 2-3V Indication: low back pain x 2 days, no inj, no surgery, Comparison: None Findings: The vertebral heights are intact. No fracture or subluxation. The disc heights are intact. Soft tissues unremarkable Impression: No acute abnormality. Reviewed, dictated and finalized at location P. Please be advised this is a medical document. It is intended for aikt-ly-bcco communication. It is written in medical language and may contain unfamiliar abbreviations or verbiage. Medical documents are intended to carry relevant information, facts as evident, and the clinical opinion of the practitioner at the time of the encounter. This report may have been done utilizing a voice recognition system. Attempts have been made to correct errors. However, there may be uncorrected grammatical, spelling, and recognition errors present. The file time of this note does not necessarily represent the time of service. Dictated By: Fabricio Felix MD 12/24/24854 Signed By: <Electronically signed by Fabricio Felix MD in OV> 12/24/24854 Critical Care Time Critical Care Time Critical Care Time: No Discharge Plan Discharge Clinical Impression: Acute exacerbation of chronic low back pain Patient Disposition: Home Condition: Stable Instructions: Acute Low Back Pain (ED), Back Pain (ED), P.R.I.C.E. Treatment (ED) Additional Instructions: Use the RICE method at home. May take ibuprofen and/or Tylenol if needed. If symptoms persist in 1 week after conservative treatment, follow-up with specialist. Patient Language: Azeri Prescriptions: New dexamethasone 4 mg tablet 4 mg PO DAILY 5 Days Qty: 5 0RF naproxen 500 mg tablet 500 mg PO BID PRN (Reason: pain) Qty: 20 0RF cyclobenzaprine 10 mg tablet 10 mg PO HS PRN (Reason: muscle spasm) Qty: 20 0RF Follow-up/Referrals: Bola Marquis DO [Primary Care Provider, Internal Medicine] Time of Disposition: 09:04
[2024-12-24 08:29] VITALS: BP 128/80; PULSE 60; RESP 16; TEMP 36.6; O2SAT 100
[2024-12-24] MEDS: dexAMETHasone SOD PHOS INJ 10 MG/ML 1 ML VIAL 8 MG IM (08:51)
[2024-12-24] MEDS: KETOROLAC (*BKC) 60 MG/2 ML VIAL IM (08:51)
== END 2024-12-24 09:10 | disposition home or self-care (01) ==
PROVIDERS: Emergency Provider Nurse Practitioner; PCP Internal Medicine
DX: M54.50 Low back pain, unspecified (principal); G89.29 Other chronic pain
CPT/HCPCS: 72100; 96372; 99214; G0463; J1100; J1885